=== PATIENT | male | born 1955 | race Caucasian/White ===

== ENCOUNTER 2021-09-13 10:52 | Outpatient (CLI) | payer MEDICARE, OTHER, SELFPAY | END 2021-09-13 10:53 | disposition home or self-care (01) | LOC: ANHAUDIO 10:54 | PROVIDERS: PCP Emergency Medicine; Visit Provider Emergency Medicine | DX: H90.3 Sensorineural hearing loss, bilateral (principal) | CPT/HCPCS: 92557; 92567 ==

== ENCOUNTER → 2022-01-20 16:17 | Outpatient (CLI) | payer MEDICARE, OTHER, SELFPAY ==
--- NOTE | ~2022-01-20 | MR_ITS ---
EXAMINATION: MR lumbar spine wo con DATE: 01/20/2022 16:54 INDICATION: Radiculopathy and low back pain TECHNIQUE: Magnetic resonance imaging (MRI) of the lumbar spine was performed without intravenous con trast. Sequences included sagittal T2-weighted FSE, sagittal T2-weighted FS FSE, sagittal T1-weighted FSE, and axial T2-weighted FSE. COMPARISON: None FINDINGS: 1-2 mm retrolisthesis L1 on L2 and L2 on L3. 4 mm retrolisthesis L3 on L4 and L4 on L5. Mild anterior wedging at T12 and L1. There are a few small Schmorl's nodes in the upper lumbar and lower thoracic spine. Acute to subacute L5 compression fracture with marrow edema underlying minimally depressed rig ht side of the superior endplate of L5. T1 and T2 hyperintense hemangioma at T12. Moderate disc heigh t loss at T11-T12. Mild disc height loss at T12-L1, L4-5 and L5-S1. The conus medullaris terminates a t L1-L2. There is normal signal in the caudal spinal cord. Paravertebral soft tissues are unremarkabl e. The following disc levels are specifically discussed: T11-T12: Disc is mildly bulging. There is mild bilateral facet osteoarthritis. There is mild bilatera l neural foraminal stenosis. There is mild central canal stenosis. T12-L1: The disc does not extend beyond the endplate margin. There is mild bilateral facet joint oste oarthritis. There is no neural foraminal stenosis. There is no central canal stenosis. L1-L2: Disc is mildly bulging. There is mild bilateral facet joint osteoarthritis. There is mild bila teral neural foraminal stenosis. There is mild central canal stenosis. L2-L3: Disc is minimally bulging. There is mild bilateral facet joint osteoarthritis. There is mild b ilateral neural foraminal stenosis. There is minimal central canal stenosis. L3-L4: Disc is bulging. There is mild bilateral facet joint osteoarthritis. There is moderate bilater al neural foraminal stenosis. There is mild central canal stenosis. L4-L5: Disc is bulging with annular fissure. There is hypertrophy of the ligamentum flavum. There is moderate bilateral facet joint osteoarthritis. There is moderate bilateral neural foraminal stenosis. There is severe central canal stenosis. L5-S1: Disc is bulging. There is severe bilateral facet joint osteoarthritis. There is moderate left and mild to moderate right neural foraminal stenosis. There is mild central canal stenosis. IMPRESSION: 1. Moderate lumbar spondylosis most notable for severe central canal stenosis at L4-L5. 2. Marrow edema underlying a minimally depressed superior endplate compression fracture at the right side of L5. Reviewed, dictated and finalized at location B. IMPRESSION: 1. Moderate lumbar spondylosis most notable for severe central canal stenosis a t L4-L5. 2. Marrow edema underlying a minimally depressed superior endplate compression fracture at the right side of L5.
== END ==
PROVIDERS: PCP Emergency Medicine; Visit Provider Emergency Medicine
DX: M47.896 Other spondylosis, lumbar region (principal)
CPT/HCPCS: 72148

== ENCOUNTER 2022-03-15 07:39 | Outpatient (CLI) | payer MEDICARE, OTHER, SELFPAY ==
--- NOTE | 2022-04-10 11:35 | WPDSLEEPSTUD ---
Sleep Study Date of Study: 03/15/22 Ordering Provider: Enzo Lynn MD Interpreting Physician: Trinity Davenport DO Sleep Study Type: Split Polysomnogram Height: 1.8 m Weight: 92.533 kg Body Mass Index: 28.4 Neck Circumference (inches): 16.5 [place]: 11 Reason for Sleep Study Daytime hypersomnia Sleep History The patient is a 66-year-old with hypertension, hyperlipidemia, coronary artery disease, spinal stenosis and history of stroke (12/2012) that had a sleep study ordered by his plumber and tinner for evaluation of sleep apnea. The patient denies awakening from sleep short of breath. He rarely awakens at night with heartburn, belching or cough. He frequently snores but is rarely loudly enough that others complain. He denies having trouble sleeping when he has a cold. He denies waking up gasping for air throughout the night. Denies having breathing problems at night observed by himself or others. He denies sweating excessively at night. He denies having heart palpitations or irregular heartbeats during the night. He frequently falls asleep during the day but rarely falls asleep while driving. He denies sleep paralysis, cataplexy and hypnagogic / hypnopompic hallucinations. He denies feeling afraid of going to sleep. He denies having nightmares. He frequently remembers his dreams. He frequently has thoughts racing through his mind. He denies feeling sad, depressed or anxious. He rarely has muscular tension. He occasionally notices parts of his body jerk. He denies kicking during the night. He denies having crawling and aching feelings in his legs but occasionally has leg pain during the night. He rarely grinds his teeth during sleep but never awakens with morning jaw pain. He is constantly bothered by pain during the day but rarely awakened by pain during the night. He frequently wakes up feeling stiff in the morning. He occasionally wakes up with sore achy muscles. He constantly wakes up with pain in the neck, spine and other joints. He goes to bed between 9-10 p.m. on weekdays and between 9-11 p.m. on the weekends. He takes him 60 90 minutes to fall asleep. He wakes up 2-4 times throughout the night to urinate. It takes him 1 hour to fall back asleep. He wakes up between 7-8 a.m. on both weekdays and weekends. He typically gets 6-7 hours of total sleep throughout the night. He stays in bed for 1 hour after waking up in the morning. He currently lives with his . He will drink caffeinated tea within 2 hours of bedtime. He denies engaging in physical exercise before bedtime. He will watch television before falling asleep. He denies taking naps in the afternoon or evening. He drinks 2 caffeinated beverages per day. He denies tobacco, alcohol and recreational drug use. FORMERLY [facility] Past Medical History Medical History Back pain at L4-L5 level Body mass index [BMI] 26.0-26.9, adult (05/18/17) Body mass index [BMI] 27.0-27.9, adult (07/26/17) Body mass index [BMI] 28.0-28.9, adult (08/03/16) Body mass index [BMI] 45.0-49.9, adult (03/07/18) Carpal tunnel syndrome, bilateral Cerebrovascular accident (CVA) Cervical radiculopathy Chronic right-sided thoracic back pain Cough DISH (diffuse idiopathic skeletal hyperostosis) Encounter for screening colonoscopy Fatigue HLD (hyperlipidemia) HTN (hypertension), benign Hypertension Injury of digital nerve of right thumb, initial encounter 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
[2022-04-11 07:57] VITALS: BMI 28.4
--- NOTE | 2022-05-25 15:05 | SLEEP ---
PT HAD F/U APPOINTMENT TO RECEIVE RESULTS. 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
== END 2022-03-16 06:48 | disposition home or self-care (01) ==
PROVIDERS: PCP Emergency Medicine; Visit Provider Internal Medicine Cardiovascular Disease
DX: G47.10 Hypersomnia, unspecified (principal); G47.33 Obstructive sleep apnea (adult) (pediatric); G47.61 Periodic limb movement disorder
CPT/HCPCS: 95811

== ENCOUNTER 2024-06-03 08:38 | Outpatient (CLI) | payer MEDICARE, OTHER, SELFPAY ==
--- NOTE | 2024-06-03 09:30 | NEURO_ITS ---
Impression: # Complains of numbness of hands. # Not enough evidence to make diagnosis of Carpal Tunnel Syndrome or ulnar neuropathy. # Normal needle/EMG exam. # Clinical correlation recommended; Higher involvement needs to be ruled out. Nerve Conduction Studies Anti Sensory Summary Table Stim Site NR Peak (ms) P-T Amp (?V) Site1 Site2 Delta-P (ms) Dist (cm) Kilo (m/s) Left Median Anti Sensory (2-3nd Digit) Wrist 2.6 47.8 Wrist 2-3nd Digit 2.6 14.0 54 Wrist 2.6 34.9 Wrist 2-3nd Digit 2.6 14.0 54 Right Median Anti Sensory (2-3nd Digit) Wrist 3.2 53.5 Wrist 2-3nd Digit 3.2 14.0 44 Wrist 2.7 34.4 Wrist 2-3nd Digit 3.2 14.0 44 Left Radial Anti Sensory (Base 1st Digit) Wrist 2.2 30.6 Wrist Base 1st Digit 2.2 0.0 Right Radial Anti Sensory (Base 1st Digit) Wrist 2.0 43.8 Wrist Base 1st Digit 2.0 0.0 Left Ulnar Anti Sensory (5th Digit) Wrist 2.3 13.9 Wrist 5th Digit 2.3 14.0 61 Right Ulnar Anti Sensory (5th Digit) Wrist 2.3 27.6 Wrist 5th Digit 2.3 14.0 61 Motor Summary Table Stim Site NR Onset (ms) O-P Amp (mV) Site1 Site2 Delta-0 (ms) Dist (cm) Kilo (m/s) Left Median Motor (Abd Poll Brev) Wrist 3.8 2.2 Elbow Wrist 5.9 32.0 54 Elbow 9.7 1.9 Right Median Motor (Abd Poll Brev) Wrist 3.9 1.3 Elbow Wrist 5.2 30.0 58 Elbow 9.1 1.2 Left Ulnar Motor (Abd Dig Minimi) Wrist 2.5 8.6 A Elbow Wrist 5.7 32.0 56 A Elbow 8.2 6.0 Right Ulnar Motor (Abd Dig Minimi) Wrist 2.3 9.0 A Elbow Wrist 5.4 30.0 56 A Elbow 7.7 6.9 F Wave Studies NR F-Lat (ms) L-R F-Lat (ms) Left Median (Mrkrs) (Abd Poll Brev) 29.11 1.13 Right Median (Mrkrs) (Abd Poll Brev) 30.23 1.13 Left Ulnar (Mrkrs) (Abd Dig Min) 29.02 0.90 Right Ulnar (Mrkrs) (Abd Dig Min) 28.13 0.90 EMG Side Muscle Nerve Root Ins Act Fibs Amp Dur Recrt Comment Right 1stDorInt Ulnar C8-T1 Nml Nml Nml Nml Nml Right Ext Indicis Radial (Post Int) C7-8 Nml Nml Nml Nml Nml Right Ext Digitorum Radial (Post Int) C7-8 Nml Nml Nml Nml Nml Right BrachioRad Radial C5-6 Nml Nml Nml Nml Nml Right PronatorTeres Median C6-7 Nml Nml Nml Nml Nml Right Abd Poll Brev Median C8-T1 Nml Nml Nml Nml Nml Right ABD Dig Min Ulnar C8-T1 Nml Nml Nml Nml Nml Left 1stDorInt Ulnar C8-T1 Nml Nml Nml Nml Nml Left Ext Indicis Radial (Post Int) C7-8 Nml Nml Nml Nml Nml Left Ext Digitorum Radial (Post Int) C7-8 Nml Nml Nml Nml Nml Left BrachioRad Radial C5-6 Nml Nml Nml Nml Nml Left PronatorTeres Median C6-7 Nml Nml Nml Nml Nml Left Abd Poll Brev Median C8-T1 Nml Nml Nml Nml Nml Left ABD Dig Min Ulnar C8-T1 Nml Nml Nml Nml Nml MTDD
== END 2024-06-03 08:39 | disposition home or self-care (01) ==
PROVIDERS: PCP Emergency Medicine; Visit Provider Emergency Medicine
DX: R20.2 Paresthesia of skin (principal)
CPT/HCPCS: 95886; 95911

== ENCOUNTER 2024-10-02 17:22 | Emergency (ER) | payer MEDICARE, OTHER, SELFPAY ==
--- NOTE | ~2024-10-02 | CT_ITS ---
CT brain wo con Ordering provider: Baudilio Riggins MD History: 69 years Male with . trauma . Comparison: January 04, 2013. Technique: CT of the head without contrast. Radiation reduction technique utilized.The dose-length pr oduct was 681 mGy-cm. 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 No midline shift, mass effect or hemorrhage. The brain parenchyma and CSF spaces are otherwise normal. VISUALIZED PARANASAL SINUSES: Left ethmoid sinus disease. MASTOIDS: Well aerated. BONES: The bones appear intact. SOFT TISSUES: Visualized nasopharynx is normal. Frontal scalp hematoma otherwise, Superficial soft t issues are normal. IMPRESSION: No acute intracranial findings. Reviewed, dictated and finalized at location A. ABILITY MANAGER
[2024-10-02 17:24] VITALS: BP 184/89; PULSE 61; RESP 18; TEMP 36.6; O2SAT 97
--- OUTSIDE RECORDS SUMMARY | 2024-10-02 17:25 | XMS_ITS | Clinical Summary ---
Author Organization [facility] Address [facility] [place] [address] Care Team Providers Care Control Manager Name Role Phone Pedrito Maddox MD Primary Care Provider + [phone] Allergies Active Allergy Reactions Criticality Noted Date Comments Penicillins Itching,Anaphylaxis High 08/19/2018 Per mother as child Medications amlodipine 10 MG tablet TK 1 T PO QD 0 07/21/2018 Active pravastatin 20 MG tablet TK 1 T PO QD 1 07/21/2018 Active quinapril 40 MG tablet TK 1 T PO QD 1 07/21/2018 Active clopidogrel 75 MG tablet Take 75 mg by mouth daily. Active Active Problems Problem Noted Date Diagnosed Date Numbness and tingling of right arm 05/02/2022 Burning sensation of lower extremity 02/01/2022 Spinal stenosis of lumbar re gion with neurogenic claudication 02/01/2022 Abnormal MRI, lumbar spine 02/01/2022 Other intervertebral disc degeneration, lumbar r egion 02/01/2022 Synovial cyst of lumbar facet joint 02/01/2022 Foraminal stenosis of lumbar region 02/01/2022 Postsurgical arthrodesis status 10/03/2018 Postoperative state 10/03/2018 Cervical stenosis of spinal canal 09/18/2018 S/P cervical spinal fusion 09/18/2018 Upper extremity weakness 08/29/2018 Stenosis of cervical spine w ith myelopathy ([facility]) 08/19/2018 Facet arthropathy, cervical 08/19/2018 Other cervical disc degenera tion, unspecified cervical region 08/19/2018 Foraminal stenosis of cervical region 08/19/2018 Immunizations Name Administration Dates Next Due MODERNA COVID-19 (12+) MRNA, LNP-S, PF, 100 MCG/ 0.5 ML DOSE 11/16/2020,10/19/2020 Family History Medical History Relation Comments Stroke Mother Heart Disease Sister 1 pacemaker Stroke Sister 1 age 58 Stroke Sister 2 age 58 Relation Status Comments Mother Sister 1 Alive Sister 2 Social History Tobacco Use Types Packs/Day Years Used Date Smoking Tobacco: Never Smokeless Tobacco: Never Tobacco Cessation:Counseling Given: Yes Alcohol Use Standard Drinks/Week Comments No 0 (1 standard drink = 0.6 oz pur e alcohol) AUDIT-C Answer Date Recorded Frequency of Alcohol Consumption Never 09/12/2018 Average Number of Drinks Not on file 019 Frequency of Binge Drinking Not on file 08/30 Sex and Gender Information Value Date Recorded Sex Assigned at Not on file Legal Sex Male 7:07 PM CDT Gender Identity Not on file Sexual Orientation Not on file Last Filed Vital Signs Vital Sign Reading Time Taken Comments Blood Pressure 166/95 07/06/2022 1:12 PM CHILD CARE CENTRE DIRECTOR ran out of bp medication Pulse 54 07/06/2022 1:12 PM CHILD CARE CENTRE DIRECTOR Temperature 36.8 C (98.3 F) 07/06/2022 1:12 PM CHILD CARE CENTRE DIRECTOR Respiratory Rate 18 05/02/2022 1:03 PM CDT Oxygen Saturation 98% 07/06/2022 1:1 2 PM CHILD CARE CENTRE DIRECTOR Inhaled Oxygen Concentration - - Weight 94.3 kg (208 lb) 07/06/2022 1:12 PM CHILD CARE CENTRE DIRECTOR Height 180.3 cm (5' 11 ) 07/06/2022 1:1 2 PM CHILD CARE CENTRE DIRECTOR Body Mass Index 29.01 07/06/2022 1:12 PM CHILD CARE CENTRE DIRECTOR Plan of Treatment Health Maintenance Due Date Last Done Comments Colorectal Cancer Screening Colonoscopy (10 Years) 1954 Hepatitis C 1972 DTaP, Tdap and Td Vaccines ( 1 - Tdap) 1973 Zoster Vaccines (1 of 2) 2004 Annual Medicare Wellness Visit 2019 Pneumococcal Vaccine: 65+ Years (1 of 1 - PCV) 2019 COVID-19 Vaccine (3 - 2023-2 5 season) 2024 11/16/2020, 10/19/2020 Influenza Adult (#1) 2024 RSV Immunization or 60+ Years (1 - 1-dose 75+ series) 2029 Meningococcal B Vaccine Aged Out No l onger eligible based on patient's age to complete this topic Meningococcal Vaccine Aged Out No nano dwayne eligible based on patient's age to complete this topic RSV Immunizations Under 20 Months Aged Out No longer eligible b ased on patient's age to complete this topic Medical Devices Implanted Type Area Market Analysis Director Device Identifier Shelf Expiration Date Model / Serial / Lot Infuse Bone Graft Implanted:Qty : 1 on 09/18/2018 by Raf Gaitan MD at [facility] N/A: Spine Cervical [employer] [id number] 11/26/2020 [id number] / / [id number] Infuse Bone Graft Implanted:Qty : 1 on 09/18/2018 by Raf Gaitan MD at [facility] N/A: Spine Cervical [employer] [id number] 05/29/2019 [id number] / / [id number] Description:C6-7 Kipton Daksha-Metalene Implanted:Qty : 1 on 09/18/2018 by Raf Gaitan MD at [facility] N/A: Spine Cervical [employer] [id number] 03/06/2022 39-2806-[id number] / / [id number] Description:C6-7 Kipton Daksha-Metalene Implanted:Qty : 1 on 09/18/2018 by Raf Gaitan MD at [facility] N/A: Spine Cervical [employer] [id number] 03/06/2022 39-2806-[id number] / / [id number] Description:C5-6 Kipton Daksha-Metalene Implanted:Qty : 1 on 09/18/2018 by Raf Gaitan MD at [facility] N/A: Spine Cervical [employer]INE [id number] 03/06/2022 39-2807-S / / [id number] Description:C4-5 Infuse Bone Graft Implanted:Qty : 1 on 09/18/2018 by Raf Gaitan MD at [facility] N/A: Spine Cervical [employer] [id number] 01/26/2019 [id number] / / [id number] [employer]ator 3 Level Plate Implanted:Qty : 1 on 09/18/2018 by Raf Gaitan MD at [facility] N/A: Spine Cervical [employer] LUIS JENIFFER [id number] / / Screw Variable Self Drilling Luis 16mm - [id number] Implanted:Qty : 8 on 09/18/2018 by Raf Gaitan MD at [facility] N/A: Spine Cervical [employer]IS [employer]FFER [id number] / / Explanted Type Area Market Analysis Director Device Identifier Shelf Expiration Date Model / Serial / Lot Distration Pin 12mm - [id number] Explanted:Qty: 4 on 09/18/[address] [facility] N/A: Spine Cervical [employer] DP-[id number] / / Insurance MEDICARE [facility] Advance Directives Documents on File Type Date Recorded Patient Director Cardiovascular Expl anation Advance Directives and Living Will 09/19/2018 9:51 AM 09/18/18 [facility] * Full Code (Latest Code Status on File) Date Activated Date Inactivated Comments 09/18/2018 3:11 PM 09/20/2018 7:06 PM Care Teams Control Manager Relationship Specialty Start Date End Date Pedrito Maddox MD [id number] [place] [id number] PCP - General INTERNAL MEDICINE 08/29/18
--- OUTSIDE RECORDS SUMMARY | 2024-10-02 17:25 | XMS_ITS | Patient Health Summary ---
Author Organization [facility] [employer] Address [address] [place] [address] Care Team Providers Care Turbinated Bone Grinder Name Role Phone Herlinda Maddox MD Primary Care Provider [phone] Note from [facility],non-owned Affiliates and Associated Physician Practices is amultiple site organization consisting of ambulatory clinics and hospital sitesin [place], [place], [place] and [place]. This disclosure is being madepursuant to the Care Everywhere program and may not contain all information available regarding this patient. Last updated 18.[facility] [employer] Allergies * Penicillins(Anaphylaxis) -High Criticality Medications * Be aware that medications may not be up to date on this document. Alwaysverify current medications with the patient. * AMLODIPINE BESYLATE PO * PRAVASTATIN SODIUM PO * CLOPIDOGREL BISULFATE PO * HYDROCHLOROTHIAZIDE PO * QUINAPRIL HCL PO * oxyCODONE-acetaminophen (PERCOCET) 5-325 MG tablet(Started 09/27/2018) Take 2 tablets by mouth every 6 hours as needed Active Problems Problem Noted Date Diagnosed Date CSF leak 09/20/2018 Social History Tobacco Use Types Packs/Day Years Used Date Smoking Tobacco: Never Smokeless Tobacco: Never Sex and Gender Information Value Date Recorded Sex Assigned at Not on file Gender Identity Not on file Sexual Orientation Not on file Last Filed Vital Signs Vital Sign Reading Time Taken Comments Blood Pressure 136/84 09/27/2018 3:36 PM [facility] Pulse 64 09/27/2018 3:36 PM [facility] Temperature 37 C (98.6 F) 09/27/2018 3:36 PM [facility] Respiratory Rate 16 09/27/2018 3:36 PM [facility] Oxygen Saturation 95% 09/27/2018 3:36 PM [facility] Inhaled Oxygen Concentration - - Weight 91.6 kg (202 lb) 09/20/2018 6:29 PM [facility] Height 180.3 cm (5' 11 ) 09/20/2018 6:29 PM [facility] Body Mass Index 28.17 09/20/2018 6:29 PM [facility] Procedures * COMPREHENSIVE METABOLIC PANEL(Performed 09/27/2018) * CBC W/O DIFFERENTIAL(Performed 09/27/2018) * XR CHEST 1VW(Performed 09/24/2018) Performed for CSF leak * BASIC METABOLIC PANEL (CALCIUM TOTAL)(Performed 09/23/2018) * PHOSPHORUS BLOOD(Performed 09/23/2018) * MAGNESIUM BLOOD(Performed 09/23/2018) * CBC W AUTO DIFFERENTIAL(Performed 09/23/2018) * BASIC METABOLIC PANEL (CALCIUM TOTAL)(Performed 09/22/2018) * PHOSPHORUS BLOOD(Performed 09/22/2018) * MAGNESIUM BLOOD(Performed 09/22/2018) * CBC W AUTO DIFFERENTIAL(Performed 09/22/2018) * CT NECK SOFT TISSUE W CONT(Performed 09/21/2018) Performed for CSF leak * BASIC METABOLIC PANEL (CALCIUM TOTAL)(Performed 09/21/2018) * PHOSPHORUS BLOOD(Performed 09/21/2018) * MAGNESIUM BLOOD(Performed 09/21/2018) * CBC W AUTO DIFFERENTIAL(Performed 09/21/2018) * STREP A SCREEN - POINT OF CARE (AMB) STL(Performed 09/28/2017) Performed for Acute nasopharyngitis * EVENT MONITOR(Performed 02/21/2013) * CT CHEST ABDOMEN PELVIS W CONT(Performed 01/07/2013) * BASIC METABOLIC PANEL (CALCIUM TOTAL)(Performed 01/07/2013) * CBC W AUTO DIFFERENTIAL(Performed 01/07/2013) * MRI BRAIN WWO CONTRAST(Performed 01/06/2013) * BASIC METABOLIC PANEL (CALCIUM TOTAL)(Performed 01/06/2013) * CBC W AUTO DIFFERENTIAL(Performed 01/06/2013) * ECHO FLORENTIN TRANSESOPHAGEAL(Performed 01/06/2013) * TROPONIN I(Performed 01/05/2013) * CK + CKMB PANEL(Performed 01/05/2013) * HEMOGLOBIN A1C(Performed 01/05/2013) * LIPID PROFILE(Performed 01/05/2013) * BASIC METABOLIC PANEL (CALCIUM TOTAL)(Performed 01/05/2013) * CBC W AUTO DIFFERENTIAL(Performed 01/05/2013) * TROPONIN I(Performed 01/05/2013) * CK + CKMB PANEL(Performed 01/05/2013) * ALCOHOL ETHYL BLOOD(Performed 01/04/2013) * CT ANGIO BRAIN AND NECK(Performed 01/04/2013) * URINALYSIS W/MICROSCOPIC NO CULTURE(Performed 01/04/2013) * DRUG ABUSE PANEL 10-20+ETHANOL URINE NO CONFIRM(Performed 01/04/2013) * ECHO COMPLETE(Performed 01/04/2013) Results * (ABNORMAL) CBC W/O DIFFERENTIAL (09/27/2018 7:22 AM [facility]) WBC 13.8(H) 3.5 - 10.5 10 3/uL 09/27/2018 7:29 AM [facility] RBC 5.95(H) 4.30 - 5.70 10 6/uL 09/27/2018 7:29 AM [facility] Hemoglobin 17.2 13.5 - 17.5 g/dL 09/27/2018 7:29 AM [facility] Hematocrit 51.1(H) 39.0 - 50.0 % 09/27/2018 7:29 AM [facility] MCV 85.9 81.0 - 97.0 fL 09/27/2018 7:29 AM [facility] MCH 28.9 28.0 - 34.0 pg 09/27/2018 7:29 AM [facility] MCHC 33.7 32.0 - 36.0 g/dL 09/27/2018 7:29 AM [facility] Platelet Count 241 150 - 400 10 3/uL 09/27/2018 7:29 AM [facility] RDW-SD 41.3 36.0 - 50.0 fL 09/27/2018 7:29 AM [facility] RDW-CV 13.4 11.2 - 14.8 % 09/27/2018 7:29 AM [facility] MPV 9.1(L) 9.3 - 12.8 fL 09/27/2018 7:29 AM [facility] nRBC Absolute 0.00 0 10 3/uL 09/27/2018 7:29 AM [facility] nRBC Auto 0.0 0 /100 WBC 09/27/2018 7:29 AM [facility] Blood BLOOD SPECIMEN / Unknown Lab Venipuncture / Unknown 09/27/2018 7:22 AM [facility] 09/27/2018 7:26 AM [facility] Casey Ewing MD LAB - HEMATOLOGY ORDERABLES [facility] [address] [place] [address] * (ABNORMAL) COMPREHENSIVE METABOLIC PANEL (09/27/2018 7:22 AM [facility]) BUN 22 7 - 26 mg/dL 09/27/2018 7:46 AM [facility] Creatinine 1.2 0.6 - 1.2 mg/dL 09/27/2018 7:46 AM [facility] Sodium 139 136 - 145 mmol/L 09/27/2018 7:46 AM [facility] Potassium 4.1 3.5 - 4.5 mmol/L 09/27/2018 7:46 AM [facility] Chloride 104 98 - 107 mmol/L 09/27/2018 7:46 AM [facility] CO2 26 22 - 29 mmol/L 09/27/2018 7:46 AM [facility] Glucose 88 70 - 115 mg/dL 09/27/2018 7:46 AM [facility] Calcium 9.5 8.4 - 10.2 mg/dL 09/27/2018 7:46 AM [facility] Protein Total 6.2 6.0 - 8.3 g/dL 09/27/2018 7:46 AM [facility] Albumin 3.0(L) 3.4 - 5.0 g/dL 09/27/2018 7:46 AM [facility] Bilirubin Total 1.2 0.2 - 1.2 mg/dL 09/27/2018 7:46 AM [facility] Alkaline Phosphatase 73 40 - 150 Units/L 09/27/2018 7:46 AM [facility] ALT 49 0 - 55 Units/L 09/27/2018 7:46 AM [facility] AST 19 5 - 34 Units/L 09/27/2018 7:46 AM [facility] Anion Gap 13 8 - 18 09/27/2018 7:46 AM [facility] BUN/Creatinine Ratio 18 7 - 23 09/27/2018 7:46 AM [facility] Osmolality Calculated 291 270 - 300 mOsm/kg 09/27/2018 7:46 AM [facility] Albumin/Globulin Ratio 0.9(L) 1.1 - 2.3 09/27/2018 7:46 AM [facility] eGFR >60 >60 mL/min/1.7 3 m2 09/27/2018 7:46 AM [facility] Blood BLOOD SPECIMEN / Unknown Lab Venipuncture / Unknown 09/27/2018 7:22 AM [facility] 09/27/2018 7:26 AM [facility] Casey Ewing MD LAB - CHEMISTRY ORDERABLES Performing Organization Address City/State/[facility] Co de Phone Number [address] [phone] * XR CHEST 1VW (09/24/2018 7:00 AM [facility]) Anatomical Region Laterality Modality Chest Radiographic Nadja ging 09/24/2018 11:3 9 AM [facility] Impressions 09/24/2018 11:56 AM [facility] IMPRESSION: 1.No acute pulmonary process is seen. Report dictated by Maged Tena M.D. This report was approved by Maged Tena on 09/24/2018 11:41 AM . I, Dr. LALA RICH M.D. have personally reviewed and interpreted this examination/study. This report was electronically signed by LALA RICH M.D. on 09/24/2018 11:56 AM . Narrative 09/24/2018 11:56 AM [facility] EXAMINATION: XR CHEST 1VW HISTORY: r/o atelectasis vs PNA COMPARISON: None. FINDINGS: The lungs are hypoinflated. No focal consolidation, pleural effusion, or pneumothorax is seen. The cardiomediastinal silhouette is normal. The visible bony thorax shows no acute fractures. Procedure Note Lala Rich MD - 09/24/2018 EXAMINATION: XR CHEST 1VW HISTORY: r/o atelectasis vs PNA COMPARISON: None. FINDINGS: The lungs are hypoinflated. No focal consolidation, pleural effusion, or pneumothorax is seen. The cardiomediastinal silhouette is normal. The visible bony thorax shows no acute fractures. IMPRESSION: 1.No acute pulmonary process is seen. Report dictated by Maged Tena M.D. This report was approved by Maged Tena on 09/24/2018 11:41 AM . I, Dr. LALA RICH M.D. have personally reviewed and interpreted this examination/study. This report was electronically signed by LALA RICH M.D. on 09/24/2018 11:56 AM . Ashish Bell MD DIAGNOSTIC IMAGING O RDERABLES * (ABNORMAL) CBC W AUTO DIFFERENTIAL (09/23/2018 3:12 AM [facility]) Only the most recent of6 resultswithin the time period is included. WBC 16.2(H) 3.5 - 10.5 10 3/uL 09/23/2018 3:29 AM [facility] RBC 5.81(H) 4.30 - 5.70 10 6/uL 09/23/2018 3:29 AM [facility] Hemoglobin 16.6 13.5 - 17.5 g/dL 09/23/2018 3:29 AM [facility] Hematocrit 49.3 39.0 - 50.0 % 09/23/2018 3:29 AM [facility] MCV 84.9 81.0 - 97.0 fL 09/23/2018 3:29 AM [facility] MCH 28.6 28.0 - 34.0 pg 09/23/2018 3:29 AM [facility] MCHC 33.7 32.0 - 36.0 g/dL 09/23/2018 3:29 AM [facility] Platelet Count 209 150 - 400 10 3/uL 09/23/2018 3:29 AM [facility] RDW-SD 40.6 36.0 - 50.0 fL 09/23/2018 3:29 AM [facility] RDW-CV 13.2 11.2 - 14.8 % 09/23/2018 3:29 AM [facility] MPV 9.2(L) 9.3 - 12.8 fL 09/23/2018 3:29 AM [facility] nRBC Absolute 0.00 0 10 3/uL 09/23/2018 3:29 AM [facility] nRBC Auto 0.0 0 /100 WBC 09/23/2018 3:29 AM [facility] Neutrophils % 83.9(H) 35.0 - 70.0 % 09/23/2018 3:29 AM [facility] Lymphocytes % 7.3(L) 19.7 - 55.1 % 09/23/2018 3:29 AM [facility] Monocytes % 6.6 3.0 - 15.0 % 09/23/2018 3:29 AM [facility] Eosinophils % 0.1 0.0 - 6.0 % 09/23/2018 3:29 AM [facility] Basophil % 0.2 0.0 - 1.5 % 09/23/2018 3:29 AM [facility] Neutrophils Absolute 13.6(H) 1.6 - 7.0 10 3/uL 09/23/2018 3:29 AM [facility] Lymphocyte Absolute 1.2 0.8 - 2.9 10 3/uL 09/23/2018 3:29 AM [facility] Monocytes Absolute 1.07(H) 0.14 - 0.66 10 3/uL 09/23/2018 3:29 AM [facility] Eosinophils Absolute 0.01 0.00 - 0.45 10 3/uL 09/23/2018 3:29 AM [facility] Basophils Absolute 0.04 0.00 - 0.06 10 3/uL 09/23/2018 3:29 AM [facility] Immature Granulocytes % 1.9(H) 0.0 - 1.0 % 09/23/2018 3:29 AM [facility] Blood BLOOD SPECIMEN / Unknown Venipuncture / Unknown 09/23/2018 3:12 AM [facility] 09/23/2018 3:25 AM [facility] Vitaly Wang MD LAB - HEMATOLOGY ORD ERABLES [facility] [address] [place] [address] * (ABNORMAL) BASIC METABOLIC PANEL (CALCIUM TOTAL) (09/23/2018 3:12 AM [facility]) Only the most recent of6 resultswithin the time period is included. BUN 24 7 - 26 mg/dL 09/23/2018 4:01 AM [facility] Creatinine 0.8 0.6 - 1.2 mg/dL 09/23/2018 4:01 AM [facility] Sodium 140 136 - 145 mmol/L 09/23/2018 4:01 AM [facility] Potassium 3.9 3.5 - 4.5 mmol/L 09/23/2018 4:01 AM [facility] Chloride 108(H) 98 - 107 mmol/L 09/23/2018 4:01 AM [facility] CO2 20(L) 22 - 29 mmol/L 09/23/2018 4:01 AM [facility] Glucose 106 70 - 115 mg/dL 09/23/2018 4:01 AM [facility] Calcium 8.6 8.4 - 10.2 mg/dL 09/23/2018 4:01 AM [facility] Anion Gap 16 8 - 18 09/23/2018 4:01 AM [facility] BUN/Creatinine Ratio 30(H) 7 - 23 09/23/2018 4:01 AM [facility] Osmolality Calculated 294 270 - 300 mOsm/kg 09/23/2018 4:01 AM [facility] eGFR >60 >60 mL/min/1.7 3 m2 09/23/2018 4:01 AM [facility] Blood BLOOD SPECIMEN / Unknown Venipuncture / Unknown 09/23/2018 3:12 AM [facility] 09/23/2018 3:25 AM [facility] Vitaly Wang MD LAB - CHEMISTRY KIRSTIN CIFUENTES [facility] Organization Address City/State/ZIP Co de Phone Number [address] [phone] * PHOSPHORUS BLOOD (09/23/2018 3:12 AM [facility]) Only the most recent of3 resultswithin the time period is included. Pathologist [facility] Phosphorus 3.3 2.3 - 4.7 mg/dL 09/23/2018 4:01 AM [facility] Blood BLOOD SPECIMEN / Unknown Venipuncture / Unknown 09/23/2018 3:12 AM [facility] 09/23/2018 3:25 AM [facility] Vitaly Wang MD LAB - CHEMISTRY KIRSTIN CIFUENTES Performing Organization Address [facility]/ZIP Co de Phone Number [address] [phone] * MAGNESIUM BLOOD (09/23/2018 3:12 AM [facility]) Only the most recent of3 resultswithin the time period is included. Magnesium 2.5 1.6 - 2.6 mg/dL 09/23/2018 4:01 AM [facility] Blood BLOOD SPECIMEN / Unknown Venipuncture / Unknown 09/23/2018 3:12 AM [facility] 09/23/2018 3:25 AM [facility] Vitaly Wang MD LAB - CHEMISTRY KIRSTIN CIFUENTES Performing Organization Address [facility] Co de Phone Number [address] [phone] * CT NECK SOFT TISSUE W CONT (09/21/2018 9:02 AM [facility]) Anatomical Region Laterality Modality Head Computed Tomogra phy 09/21/2018 10:0 4 AM [facility] Impressions 09/21/2018 2:54 PM [facility] IMPRESSION: Postoperative changes of recent anterior cervical discectomy and instrumented fusion from C4 to C7 with right-sided anterior soft tissue surgical drain in place. No abnormal fluid collection to suggest pseudomeningocele. No abnormal enhancement. Streak artifact from the metallic hardware somewhat limits evaluation on the adjacent soft tissues. I, Dr. TRACI DRUMMOND have personally reviewed and interpreted this examination/study. This report was electronically signed by TRACI DRUMMOND on 09/21/2018 2:54 PM . Narrative 09/21/2018 2:54 PM [facility] EXAMINATION: Computed tomography (CT) of the neck with contrast HISTORY: History of stroke and cervical myelopathy status post C4/5, C5/6 and C6/7 ACDF on 09/18/18 who presents with concerns for CSF leak with increased clear fluid output from the ASMITA drain TECHNIQUE: CT of the neck was performed following the uneventful administration of contrast according to standard protocol. COMPARISON: CT angiogram and neck from 01/04/2013. FINDINGS: The patient is status post recent anterior cervical discectomy and spinal fusion from C4-C7. Anterior fixation plate with bilateral anterior screws are seen . Intervertebral disc spacers are noted. The hardware is intact and in expected alignment without foraminal or spinal canal encroachment. A right sided anterior soft tissue drain is in place terminating in the left para midline location at C7-T1 level in the prevertebral/retropharyngeal space. There is mild prevertebral soft tissue swelling without drainable fluid collection. The thickening is most pronounced at C7-T1 level (series 5 image 145). There is no abnormal enhancement in this region. Please note that the evaluation soft tissues is somewhat limited due to streak artifact from the metallic hardware. The cervical curvature is maintained. The vertebrae are normal in height. Disc is osteophyte complexes are seen at all levels with mild to moderate spinal canal stenosis and at least moderate foraminal stenosis at multiple levels, particularly on the right. No lymphadenopathy is seen. The muscles of the neck appear normal. The cervical internal carotid arteries and internal jugular veins appear normal. The visualized airway appears normal. Other than mild paranasal sinus disease, the visualized orbits and paranasal sinuses appear normal. Mild bilateral dependent atelectasis is noted. The thyroid enhances homogenously. Procedure Note Traci Drummond MD - 09/21/2018 EXAMINATION: Computed tomography (CT) of the neck with contrast HISTORY: History of stroke and cervical myelopathy status post C4/5,C5/6 and C6/7 ACDF on 09/18/18 who presents with concerns for CSF leak with increased clear fluid output from the ASMITA drain TECHNIQUE: CT of the neck was performed following the uneventful administration of contrast according to standard protocol. COMPARISON: CT angiogram and neck from 01/04/2013. FINDINGS: The patient is status post recent anterior cervical discectomy andspinal fusion from C4-C7. Anterior fixation plate with bilateral anteriorscrews are seen . Intervertebral disc spacers are noted. The hardware is intact and in expected alignment without foraminal or spinal canalencroachment. A right sided anterior soft tissue drain is in place terminating in the left para midline location at C7-T1 level in the prevertebral/retropharyngeal space. There is mild prevertebral softtissue swelling without drainable fluid collection. The thickening is most pronounced at C7-T1 level (series 5 image 145). There is no abnormal enhancement in this region. Please note that the evaluation soft tissues is somewhat limited due to streak artifact from the metallic hardware. The cervical curvature is maintained. The vertebrae are normal inheight. Disc is osteophyte complexes are seen at all levels with mild tomoderate spinal canal stenosis and at least moderate foraminal stenosis atmultiple levels, particularly on the right. No lymphadenopathy is seen. The muscles of the neck appear normal. The cervical internal carotid arteries and internal jugular veins appear normal. The visualized airway appears normal. Other than mild paranasal sinus disease, the visualized orbits and paranasal sinuses appearnormal. Mild bilateral dependent atelectasis is noted. The thyroid enhances homogenously. IMPRESSION: Postoperative changes of recent anterior cervical discectomy and instrumented fusion from C4 to C7 with right-sided anterior soft tissue surgical drain in place. No abnormal fluid collection to suggest pseudomeningocele. No abnormal enhancement. Streak artifact from the metallic hardware somewhat limits evaluation on the adjacent softtissues. I, Dr. TRACI DRUMMOND have personally reviewed and interpreted this examination/study. This report was electronically signed by TRACI DRUMMOND on 09/21/2018 2:54PM . Vitaly Wang MD CT ORDERABLES * STREP A SCREEN (09/28/2017) Strep A Rapid POCT Negative Negative Strep A Internal Control Present Lot # [id number] Expiration Date [id number] Throat ENTIRE THROAT (SURFACE REGION OF NECK) / Unknown 09/28/2017 Martínez Ireland CARD READER-AIRCREWMAN LAB - POINT OF CARE ORDERABLES * EVENT MONITOR (02/21/2013 8:35 AM CDT) Narrative [facility] - 02/21/2013 8:35 AM CDT Hector Rivas underwent cardiac monitoring with a 30 day event monitor. Results are as follows: Quality of Tracings: Good. Rhythm: Sinus rhythm, sinus bradycardia. Ectopy: None. Symptoms: None reported. Please feel free to contact me with any questions, thank you. Procedure Note Provider, MD Long - 01/04/2018 Hector Rivas underwent cardiac monitoring with a 30 day event monitor.Results are as follows: Quality of Tracings: Good. Rhythm: Sinus rhythm, sinus bradycardia. Ectopy: None. Symptoms: None reported. Please feel free to contact me with any questions, thank you. Arpan Bean CARDIAC SERVICES ORD ERABLES [facility] * CT CHEST ABDOMEN PELVIS W CONT (01/07/2013 4:53 PM CDT) Anatomical Region Laterality Modality Chest, Abdomen, Pelvis Other Impressions 01/08/2013 11:11 AM CDT IMPRESSION: 1. No CT evidence of malignancy in the chest or abdomen. 2. Prostatic enlargement. Findings were discussed with Dr. Schwab of neurology by Dr. Carroll at 5:27 PM on 01/07/2013. This report was approved by Salazar Packer M.D. on 01/08/2013 9:41 AM . I, Dr. HERLINDA VERDUZCO M.D. have personally reviewed and interpreted this examination/study. This report was electronically signed by HERLINDA VERDUZCO M.D. on 01/08/2013 11:11 AM . Narrative 01/08/2013 11:11 AM CDT EXAMINATION: Computed tomography of the chest, abdomen, and pelvis with contrast HISTORY: Stroke with occlusion of anterior and posterior circulations. Concern for embolic source. Evaluate for malignancy. TECHNIQUE: Computed tomography of the chest, abdomen, and pelvis was performed following the uneventful administration of 100 mL Omnipaque 350 intravenous contrast according to standard protocol. FINDINGS: No prior study is available for comparison. The lungs are free of focal consolidations. No suspicious pulmonary nodules are visible. There is no pleural effusion or pneumothorax. Dependent bibasilar atelectasis is present. There are calcified subcentimeter lymph node in the mediastinum. There is no supraclavicular, axillary, or hilar lymphadenopathy. There is a 4 mm hypodense right lower thyroid lobe nodule. The left-sided aortic arch is normal in course and caliber. The pulmonary arteries are normal in course and caliber. The remaining enhanced vascular structures are normal. The heart size is normal. There is no pericardial effusion. Abdomen and Pelvis: The liver enhances homogenously. No focal intrahepatic lesions are seen. The gallbladder is normal without evidence of gallstones or gallbladder wall thickening. There is no intrahepatic or extrahepatic biliary ductal dilatation. The spleen enhances homogenously. The pancreas and adrenal glands are normal. Other than a small left renal cyst measuring 1.6 cm in diameter, the kidneys enhance symmetrically bilaterally. There is no hydronephrosis or hydroureter. There are scattered colonic diverticula without evidence of diverticulitis. The stomach, small bowel and large bowel are normal in course and caliber without evidence of bowel wall thickening or bowel obstruction. No free intraperitoneal air or fluid is seen. The appendix is not visible, however there is no fat stranding in the right lower quadrant. There is no evidence of retroperitoneal lymphadenopathy. The abdominal aorta is normal in course and caliber. The remaining enhanced abdominal vascular structures are normal. The bladder is distended with fluid. There is an enlarged prostate measuring 5.6 cm transverse dimension with central foci of calcification, and indenting the posterior aspect of the bladder. There is no free fluid in the pelvis. Bone windows demonstrate no suspicious lytic or blastic lesions. Multilevel degenerative changes are seen in the spine. Procedure Note Herlinda Verduzco MD - 10/28/2017 EXAMINATION: Computed tomography of the chest, abdomen, and pelvis withcontrast HISTORY: Stroke with occlusion of anterior and posterior circulations.Concern for embolic source. Evaluate for malignancy. TECHNIQUE: Computed tomography of the chest, abdomen, and pelvis wasperformed following the uneventful administration of 100 mL Omnipaque 350intravenous contrast according to standard protocol. FINDINGS: No prior study is available for comparison. The lungs are free of focal consolidations. No suspicious pulmonarynodules are visible. There is no pleural effusion or pneumothorax. Dependent bibasilaratelectasis is present. There are calcified subcentimeter lymph node in the mediastinum. There isno supraclavicular, axillary, or hilar lymphadenopathy. There is a 4 mmhypodense right lower thyroid lobe nodule. The left-sided aortic arch is normal in course and caliber. The pulmonaryarteries are normal in course and caliber. The remaining enhanced vascularstructures are normal. The heart size is normal. There is no pericardial effusion. Abdomen and Pelvis: The liver enhances homogenously. No focal intrahepatic lesions are seen.The gallbladder is normal without evidence of gallstones or gallbladderwall thickening. There is no intrahepatic or extrahepatic biliary ductaldilatation. The spleen enhances homogenously. The pancreas and adrenal glands are normal. Other than asmall left renal cyst measuring 1.6 cm in diameter, the kidneys enhancesymmetrically bilaterally. There is no hydronephrosis or hydroureter. There are scattered colonic diverticula without evidence ofdiverticulitis. The stomach, small bowel and large bowel are normal incourse and caliber without evidence of bowel wall thickening or bowelobstruction. No free intraperitoneal air or fluid is seen. The appendix is not visible, however there is no fat stranding inthe right lower quadrant. There is no evidence of retroperitoneallymphadenopathy. The abdominal aorta is normal in course and caliber. Theremaining enhanced abdominal vascular structures are normal. The bladder is distended with fluid. There is an enlarged prostatemeasuring 5.6 cm transverse dimension with central foci of calcification,and indenting the posterior aspect of the bladder. There is no free fluidin the pelvis. Bone windows demonstrate no suspicious lytic or blastic lesions.Multilevel degenerative changes are seen in the spine. IMPRESSION IMPRESSION: 1. No CT evidence of malignancy in the chest or abdomen. 2. Prostatic enlargement. Findings were discussed with Dr. Schwab of neurology by Dr. Carroll at 5:27PM on 01/07/2013. This report was approved by Salazar Packer M.D. on 01/08/2013 9:41 AM. I, Dr. HERLINDA VERDUZCO M.D. have personally reviewed and interpretedthis examination/study. This report was electronically signed by HERLINDA VERDUZCO M.D. on01/08/2013 11:11 AM . Shailesh Talamantes MD CT ORDERABLES * MRI BRAIN WWO CONTRAST (01/06/2013 12:53 PM CDT) Anatomical Region Laterality Modality Head Other Impressions 01/06/2013 1:09 PM CDT IMPRESSION: 1. Findings consistent with acute to subacute infarction in the right middle cerebral artery territory as well as an acute to subacute infarction in the lateral thalamus which usually is supplied by lenticulostriate arteries from the posterior circulation. No evidence of hemorrhagic conversion. 2. No mass-like enhancement to suggest malignancy. Right parietal developmental venous anomaly. This report was electronically signed by BRET TUCKER M.D. on 01/06/2013 1:09 PM . Narrative 01/06/2013 1:09 PM CDT EXAMINATION: Magnetic resonance imaging (MRI) of the brain without and with contrast HISTORY: Dysarthria, ptosis, right middle cerebral artery territory infarction. Evaluate for malignancy. TECHNIQUE: MRI of the brain was performed prior to and following the uneventful administration of MultiHance 17 mL intravenous gadolinium contrast according to standard protocol. FINDINGS: No prior study is available for comparison. There is an area of diffusion restriction involving the right frontal lobe cortex and subcortical white matter including the right centrum semiovale as well as the right subinsular region and lateral aspect of the right thalamus with associated T2/FLAIR hyperintensity consistent with acute to subacute infarction. There is a minimal amount of leptomeningeal enhancement in portions of the involved right frontal lobe consistent with recent infarction. No MR evidence of hemorrhagic conversion. There is a focus of linear enhancement extending from the region of the trigone of the right lateral ventricle to the right parietal cortex most consistent with a developmental venous anomaly. No mass-like enhancement is identified. A few scattered T2/FLAIR periventricular hyperintensities are nonspecific but can be seen in the setting of small vessel ischemic disease. Focus of T2 hyperintensity and lack of enhancement in the main likely small old lacunar infarction. Ventricles are of normal size, shape, and morphology. The corpus callosum and sella appear normal. The posterior fossa, brainstem, and craniocervical junction appear normal. The visualized portions of the orbits, mastoids and paranasal sinuses appear normal. Normal flow voids are demonstrated in the carotid arteries and basilar artery. The calvarium and visualized cervical spine appear normal. Procedure Note Bret Tucker MD - 10/28/2017 EXAMINATION: Magnetic resonance imaging (MRI) of the brain without andwith contrast HISTORY: Dysarthria, ptosis, right middle cerebral artery territoryinfarction. Evaluate for malignancy. TECHNIQUE: MRI of the brain was performed prior to and following theuneventful administration of MultiHance 17 mL intravenous gadoliniumcontrast according to standard protocol. FINDINGS: No prior study is available for comparison. There is an area of diffusion restriction involving the right frontal lobecortex and subcortical white matter including the right centrum semiovaleas well as the right subinsular region and lateral aspect of the rightthalamus with associated T2/FLAIR hyperintensity consistent with acute to subacute infarction. There is aminimal amount of leptomeningeal enhancement in portions of the involvedright frontal lobe consistent with recent infarction. No MR evidence ofhemorrhagic conversion. There is a focus of linear enhancement extending from the region of the trigone ofthe right lateral ventricle to the right parietal cortex most consistentwith a developmental venous anomaly. No mass-like enhancement isidentified. A few scattered T2/FLAIR periventricular hyperintensities are nonspecific but can be seen in thesetting of small vessel ischemic disease. Focus of T2 hyperintensity andlack of enhancement in the main likely small old lacunar infarction. Ventricles are of normal size, shape, and morphology. The corpus callosumand sella appear normal. The posterior fossa, brainstem, andcraniocervical junction appear normal. The visualized portions of the orbits, mastoids and paranasal sinusesappear normal. Normal flow voids are demonstrated in the carotid arteriesand basilar artery. The calvarium and visualized cervical spine appearnormal. IMPRESSION IMPRESSION: 1. Findings consistent with acute to subacute infarction in the rightmiddle cerebral artery territory as well as an acute to subacuteinfarction in the lateral thalamus which usually is supplied bylenticulostriate arteries from the posterior circulation. No evidence of hemorrhagic conversion. 2. No mass-like enhancement to suggest malignancy. Right parietaldevelopmental venous anomaly. This report was electronically signed by BRET TUCKER M.D. on 01/06/20131:09 PM . Shailesh Talamantes MD MR ORDERABLES * ECHO FLORENTIN TRANSESOPHAGEAL (01/06/2013 12:00 AM CDT) Anatomical Region Laterality Modality Other 01/06/2013 Shailesh Talamantes MD ECHOCARDIOGRAPHY RAD IANT * TROPONIN I (01/05/2013 8:00 AM CDT) Only the most recent of2 resultswithin the time period is included. Troponin I < 0.010 <0.032 ng/mL [facility] Comment: NOTE Any condition resulting in myocardial cell damage can potentially increase cardiac troponin-I levels. Published studies have documented that these conditions include, but are not limited to, angina, unstable angina, congestive heart failure, myocarditis, cardiac surgery, or invasive testing and non-cardiac related causes such as pulmonary embolism, renal failure, and sepsis. 6-8 hours are required for cardiac troponin I to increase after onset of chest pain. Troponin values generally remain elevated for 5-10 days. 01/05/2013 8:00 AM CDT 01/05/2013 9:23 AM CDT Shailesh Talamantes MD LAB - CHEMISTRY KIRSTIN CIFU[facility] Organization Address City/State/ZIP Co de Phone Number [address] [phone] * CK + CKMB PANEL (01/05/2013 8:00 AM CDT) Only the most recent of2 resultswithin the time period is included. Pathologist [facility] CK Total 53 30 - 200 Units/L [facility] CK-MB 1.6 0.0 - 6.6 ng/mL [facility] Comment: CKMB Reference Range 6.6 ng/mL or greater = Positive For indeterminate results, additional specimen(s) for CKMB, drawn at least one hour apart, may aid diagnosis. Positive CKMB results should be clinically interpreted in combination with total CK serum level. In patients without cardiac muscle damage, CKMB (ng/mL) is generally <2.5% of total CK enzyme activity (Units/L). Virtually all patients with acute myocardial infarction have CKMB values 6.6 ng/mL or greater for samples drawn at least 8-12 hours after the onset of chest pain. CKMB values generally remain elevated for 2-3 days. 01/05/2013 8:00 AM CDT 01/05/2013 9:23 AM CDT Shailesh Talamantes MD LAB - CHEMISTRY [facility] [address] [phone] * HEMOGLOBIN A1C (01/05/2013 1:15 AM CDT) Hemoglobin A1c 5.3 4.4 - 6.3 % [facility] Estimated Average Glucose 105 mg/dL [facility] Blood specimen (specimen) 01/05/2013 1:15 AM CDT 01/05/2013 2:31 AM CDT Shailesh Talamantes MD LAB - CHEMISTRY [facility]IRSTIN CIFU[facility] Performing Organization Address [facility] Co de Phone Number [address] [phone] * (ABNORMAL) LIPID PROFILE (01/05/2013 1:15 AM CDT) Cholesterol Total 178 <200 mg/dL [facility] HDL 29(L) > OR = 40 mg/dL [facility] Comment: ATP III classification of HDL cholesterol: <40 mg/dL Low; considered a major risk factor >60 mg/dL High; considered a negative risk factor Triglycerides 213(H) <150 mg/dL [facility] Comment: ATP III classification of Triglycerides: < 150 mg/dL Normal triglycerides 150-199 mg/dL Borderline-high triglycerides 200-400 mg/dL High triglycerides > 500 mg/dL Very high triglycerides LDL Calculated 106(H) 0 - 100 mg/dL [facility] Comment: ATP III classification of LDL cholesterol: <100 mg/dL Optimal 100-129 Near optimal/above optimal 130-159 Borderline high 160-189 High >190 Very high Venous blood specimen (specimen) 01/05/2013 1:15 AM CDT 01/05/2013 2:31 AM CDT Shailesh Talamantes MD LAB - CHEMISTRY [facility]IRSTIN C[facility] [address] [phone] * ALCOHOL ETHYL BLOOD (01/04/2013 9:20 PM CDT) Ethanol NONE DETECTED NONE DETECTED mg/dL [facility] Comment: ETHANOL LEVELS LESS THAN 10 MG/DL ARE RESULTED NONE DETECTED Venous blood specimen (specimen) 01/04/2013 9:20 PM CDT 01/04/2013 9:33 PM CDT Shailesh Talamantes MD LAB - CHEMISTRY [place] [address], [facility] [phone] * CT ANGIO BRAIN AND NECK (01/04/2013 9:07 PM CDT) Anatomical Region Laterality Modality Head Other Impressions 01/05/2013 8:53 AM CDT IMPRESSION: 1. Evolving right middle cerebral artery territory infarction without hemorrhagic conversion. In a right M2 branch passing anteriorly immediately distal to the right middle cerebral artery bifurcation there is a relative paucity of contrast opacification extending peripherally to the region of infarction when compared with a similar region in the left middle cerebral artery territory. These results were reported by Dr. Paul to Dr. Martinez on 01/04/2013 at 9:40 PM. This report was electronically signed by BRET TUCKER M.D. on 01/05/2013 8:53 AM . Narrative 01/05/2013 8:53 AM CDT EXAMINATION: Computed tomography (CT) of the head and neck without and with contrast HISTORY: Dizziness, confusion, slurred speech. Right middle cerebral artery territory ischemic stroke. TECHNIQUE: CT of the head was performed without contrast according to standard protocol. Then CT angiography of the head and neck was obtained after the uneventful administration of 50 mL of Omnipaque 350 intravenous contrast. Three dimensional postprocessing was performed by the technologist and sent to the workstation for review. FINDINGS: Comparison is made to outside institution head CT from 01/04/2013. Head and neck: There has been interval evolution of a region of hypoattenuation involving the cortex and extending into the subcortical white matter/right centrum semiovale consistent with right middle cerebral artery territory infarction. No evidence of hemorrhagic conversion is identified. No significant mass effect or midline shift is noted. The basilar cisterns are patent. The gaytan-white matter differentiation is otherwise maintained. The orbits appear normal. The mastoid air cells are clear. Mild mucosal thickening in the maxillary sinuses with small mucous retention cysts. No acute fracture is identified. There is a 4 mm hypoattenuating nodule in the right lobe of the thyroid. The airway appears patent. Fascial planes in the neck are preserved. Calcified lymph nodes are noted in the upper mediastinum. Moderate degenerative disc disease is present throughout much of the cervical spine dating to to moderate to severe central canal stenosis most pronounced at C6-7. Uncovertebral and facet arthropathy is also present at multiple levels leading to neuroforaminal stenosis also most pronounced at C6-7 bilaterally. Angiographic findings: There is a three-vessel aortic arch. The right common carotid artery appears normal. The right carotid bifurcation appears normal. The right internal carotid artery appears normal. The left common carotid artery appears normal. The left carotid bifurcation demonstrates minimal atherosclerotic plaque without significant stenosis. The left internal carotid artery appears normal. The left vertebral artery is dominant and appears normal. The right vertebral artery appears normal. The A1 segment of the left anterior cerebral artery is mildly diminutive when compared with the right. The M1 segments appear normal bilaterally. In a right M2 branch extending anteriorly just distal to the right middle cerebral artery bifurcation there is a relative paucity of contrast opacification extending peripherally to the region of infarction when compared with a similar region on the left. This can be seen in series 14, image 206 extending to image 85. No aneurysm is identified. The posterior cerebral arteries appear normal. Procedure Note Bret Tucker MD - 10/28/2017 EXAMINATION: Computed tomography (CT) of the head and neck without andwith contrast HISTORY: Dizziness, confusion, slurred speech. Right middle cerebralartery territory ischemic stroke. TECHNIQUE: CT of the head was performed without contrast according tostandard protocol. Then CT angiography of the head and neck was obtainedafter the uneventful administration of 50 mL of Omnipaque 350 intravenouscontrast. Three dimensional postprocessing was performed by the technologist and sent to theworkstation for review. FINDINGS: Comparison is made to outside institution head CT from01/04/2013. Head and neck: There has been interval evolution of a region of hypoattenuation involvingthe cortex and extending into the subcortical white matter/right centrumsemiovale consistent with right middle cerebral artery territoryinfarction. No evidence of hemorrhagic conversion is identified. No significant mass effect or midline shift isnoted. The basilar cisterns are patent. The gaytan-white matterdifferentiation is otherwise maintained. The orbits appear normal. Themastoid air cells are clear. Mild mucosal thickening in the maxillary sinuses with small mucous retention cysts. Noacute fracture is identified. There is a 4 mm hypoattenuating nodule in the right lobe of the thyroid.The airway appears patent. Fascial planes in the neck are preserved.Calcified lymph nodes are noted in the upper mediastinum. Moderatedegenerative disc disease is present throughout much of the cervical spine dating to to moderate to severecentral canal stenosis most pronounced at C6-7. Uncovertebral and facetarthropathy is also present at multiple levels leading to neuroforaminalstenosis also most pronounced at C6- 7 bilaterally. Angiographic findings: There is a three-vessel aortic arch. The right common carotid arteryappears normal. The right carotid bifurcation appears normal. The rightinternal carotid artery appears normal. The left common carotid arteryappears normal. The left carotid bifurcation demonstrates minimal atherosclerotic plaque withoutsignificant stenosis. The left internal carotid artery appears normal. Theleft vertebral artery is dominant and appears normal. The right vertebralartery appears normal. The A1 segment of the left anterior cerebral artery is mildly diminutive when compared withthe right. The M1 segments appear normal bilaterally. In a right M2 branchextending anteriorly just distal to the right middle cerebral arterybifurcation there is a relative paucity of contrast opacification extending peripherally to the region ofinfarction when compared with a similar region on the left. This can beseen in series 14, image 206 extending to image 85. No aneurysm isidentified. The posterior cerebral arteries appear normal. IMPRESSION IMPRESSION: 1. Evolving right middle cerebral artery territory infarction withouthemorrhagic conversion. In a right M2 branch passing anteriorlyimmediately distal to the right middle cerebral artery bifurcation thereis a relative paucity of contrast opacification extending peripherally to the region of infarction when compared with asimilar region in the left middle cerebral artery territory. These results were reported by Dr. Paul to Dr. Martinez on 01/04/2013 at 9:40PM. This report was electronically signed by BRET TUCKER M.D. on 01/05/20138:53 AM . Shailesh Talamantes MD CT ORDERABLES * (ABNORMAL) URINALYSIS W/MICROSCOPIC NO CULTURE (01/04/2013 8:25 PM CDT) Color UA YELLOW STRW,YELLOW [facility] Clarity UA CLEAR CLEAR [facility] Specific [place] Urine 1.011 1.001 - 1.030 [facility] pH UA 6.5 5.0 - 8.0 [facility] Protein UA NEGATIVE <20 mg/dL [facility] Glucose UA NEGATIVE NEGATIVE mg/dL [facility] Ketones NEGATIVE NEGATIVE mg/dL [facility] Bilirubin UA NEGATIVE NEGATIVE mg/dL [facility] Blood UA NEGATIVE NEGATIVE [facility] Nitrite UA NEGATIVE NEGATIVE [facility] Leukocyte Esterase NEGATIVE NEGATIVE [facility] Urobilinogen UA < 2.0 <2.0 mg/dL [facility] RBC Urine < 1 0 - 8 /HPF [facility] WBC Urine < 1 0 - 2 /HPF [facility] Bacteria Urine RARE <OCCASIONAL /HPF [facility] Mucus Urine OCCASIONAL( A) NONE SEEN /LPF [facility] Urine specimen (specimen) URINE SPECIMEN OBTAINED BY CLEAN CATCH PROCEDURE / Unknown 01/04/2013 8:25 PM CDT 01/04/2013 8:42 PM CDT Shailesh Talamantes MD LAB - URINALYSIS ORD ERABLES Performing Organization Address City/State/[facility] Co de Phone Number [address] [phone] * DRUG ABUSE PANEL 10-20+ETHANOL URINE NO CONFIRM (01/04/2013 8:25 PM CDT) Amphetamines NEGATIVE NEGATIVE [facility] Comment:Positive Cutoff: >=1 000 ng/mL Barbiturate NEGATIVE NEGATIVE [facility] Comment:Positive Cutoff: >=2 00 ng/mL Benzodiazepine Screen Urine NEGATIVE NEGATIVE [facility] Comment:Positive Cutoff: >=2 00 ng/mL Opiates NEGATIVE NEGATIVE [facility] Comment:Positive Cutoff: >=3 00 ng/mL Cocaine Metabolite Urine NEGATIVE NEGATIVE [facility] Comment:Positive Cutoff: >=3 00 ng/mL Phencyclidine Screen Urine NEGATIVE NEGATIVE [facility] Comment:Positive Cutoff: >=2 5 ng/mL Cannabinoids Screen Urine NEGATIVE NEGATIVE [facility] Comment:Positive Cutoff: >=5 0 ng/mL Methadone NEGATIVE NEGATIVE [facility] Comment:Positive Cutoff: >=3 00 ng/mL Note SEE NOTE [facility] Comment: Positive results should be confirmed by another generally accepted non-immunological method such as gas chromatography or mass spectrometry. Toxicology testing by the [facility] is an aid to medical diagnosis and treatment of patients. No documented chain of custody was maintained. Results are intended to be used for clinical purposes only. Note SEE NOTE [facility] Comment: The UTOX Panel does not screen for Propoxyphene, Meprobamate, Carisoprodol, Trazodone, [id number] medications and/or volatiles (Acetone, Isopropanol, Methanol, Ethylene Glycol). Ethanol, Salicylate, Acetaminophen, Tricyclic Antidepressants and several therapeutic drugs may be individually assayed in a serum specimen. Urine specimen (specimen) URINE SPECIMEN OBTAINED BY CLEAN CATCH PROCEDURE / Unknown 01/04/2013 8:25 PM CDT 01/04/2013 8:44 PM CDT Shailesh Talamantes MD LAB - URINE CHEMISTR Y ORDERABLES [address] [phone] * ECHO W DOPPLER AND COLOR FLOW (01/04/2013 12:00 AM CDT) Anatomical Region Laterality Modality Other 01/04/2013 Shailesh Talamantes MD ECHOCARDIOGRAPHY RAD IANT Care Teams Turbinated Bone Grinder Relationship Specialty Start Date End Date Herlinda Maddox MD [address] [place], [place] [id number] PCP - General Internal Medicine 09/28/17
--- OUTSIDE RECORDS SUMMARY | 2024-10-02 17:25 | XMS_ITS | Clinical Summary ---
Author Organization [facility] [employer] Address [address] [place] [address] Care Team Providers Care Salvage Winder Name Role Phone Pedrito Maddox MD Primary Care Provider [phone] Source Comments [facility] [employer],non-owned Affiliates and Associated Physician Practices is amultiple site organization consisting of ambulatory clinics and hospital sitesin [place], [place], [place] and [place]. This disclosure is being madepursuant to the Care Everywhere program and may not contain all information available regarding this patient. Last updated 18.[facility] [employer] Allergies Active Allergy Reactions Criticality Noted Date Comments Penicillins Anaphylaxis High 09/21/2018 Medications * Be aware that medications may not be up to date on this document. Alwaysverify current medications with the patient. Medication Sig Dispensed Refills Start Date End Date Status AMLODIPINE BESYLATE PO Active PRAVASTATIN SODIUM PO Act margot CLOPIDOGREL BISULFATE PO Active HYDROCHLOROTHIAZIDE PO Active QUINAPRIL HCL PO Active oxyCODONE-acetaminoph en (PERCOCET) 5-325 MG tablet Take 2 tablets by mouth every 6 hours as needed 56 tablet 09/27/2018 Active Active Problems Problem Noted Date Diagnosed [...] Comments Blood Pressure 136/84 09/27/2018 3:36 PM PUMP ATTENDANT Pulse 64 09/27/2018 3:36 PM PUMP ATTENDANT Temperature 37 C (98.6 F) 09/27/2018 3:36 PM PUMP ATTENDANT Respiratory Rate 16 09/27/2018 3:36 PM PUMP ATTENDANT Oxygen Saturation 95% 09/27/2018 3:36 PM PUMP ATTENDANT Inhaled Oxygen Concentration - - Weight 91.6 kg (202 lb) 09/20/2018 6:29 PM PUMP ATTENDANT Height 180.3 cm (5' 11 ) 09/20/2018 6:29 PM PUMP ATTENDANT Body Mass Index 28.17 09/20/2018 6:29 PM PUMP ATTENDANT Plan of Treatment Health Maintenance Due Date Last Done Comments COLOGUARD (AGES 45-75) - COLON CA SCREENING 1954 COLON MONITORING 1954 COLONOSCOPY - COLON CA SCREENING 1954 CT COLONOGRAPHY - COLON CA SCREENING 1954 Colorectal Cancer Screening 1954 FIT - COLON CA SCREENING 1954 FLEX SIG - COLON CA SCREENING 1954 HEPATITIS C SCREENING 06/02/1972 DTAP/TDAP/TD VACCINES (1 - Tdap) 1973 PNEUMOCOCCAL VACCINE 50+ (1 of 1 - PCV) 2004 ZOSTER VACCINE (1 of 2) 2004 SCREENING FOR DIABETES 09/27/2021 9, 09/23/2018, 09/22/2018, Additional history exists COVID-19 VACCINE ( - 2023- season) 2024 INFLUENZA VACCINE (#1) 2024 DEPRESSION SCREENING 07/30/2024 Respiratory Syncytial Virus (RSV) Vaccine Pt: or over 60 yrs (1 - 1-dose 75+ series) 2029 HEPATITIS B VACCINE Aged Out No longe r eligible based on patient's age to complete this topic HIB VACCINE Aged Out No longer eligi ble based on patient's age to complete this topic HPV VACCINE Aged Out No longer eligi ble based on patient's age to complete this topic MENINGOCOCCAL (Group B) VACCINE Aged Out No longer eligible based on patient's age to complete this topic MENINGOCOCCAL VACCINE Aged Out No nano dwayne eligible based on patient's age to complete this topic Procedures Procedure Name Priority Date/Time Associated Diagnosis Comments COMPREHENSIVE METABOLIC PANEL STAT 09/27/2018 7:22 AM PUMP ATTENDANT from Last 3 Months or Most Recently Relevant to Health Maintenance Results * (ABNORMAL) COMPREHENSIVE METABOLIC PANEL (09/27/2018 7:22 AM [facility]) BUN 22 7 - 26 mg/dL 09/27/2018 7:46 AM [facility] Creatinine 1.2 0.6 - 1.2 mg/dL 09/27/2018 7:46 AM [facility] Sodium 139 136 - 145 mmol/L 09/27/2018 7:46 AM [facility] Potassium 4.1 3.5 - 4.5 mmol/L 09/27/2018 7:46 AM [facility] Chloride 104 98 - 107 mmol/L 09/27/2018 7:46 AM [facility] CO2 26 22 - 29 mmol/L 09/27/2018 7:46 AM [facility] Glucose 88 70 - 115 mg/dL 09/27/2018 7:46 AM [facility] Calcium 9.5 8.4 - 10.2 mg/dL 09/27/2018 7:46 AM [facility] Protein Total 6.2 6.0 - 8.3 g/dL 09/27/2018 7:46 AM [facility] Albumin 3.0(L) 3.4 - 5.0 g/dL 09/27/2018 7:46 AM [facility] Bilirubin Total 1.2 0.2 - 1.2 mg/dL 09/27/2018 7:46 AM [facility] Alkaline Phosphatase 73 40 - 150 Units/L 09/27/2018 7:46 AM [facility] ALT 49 0 - 55 Units/L 09/27/2018 7:46 AM [facility] AST 19 5 - 34 Units/L 09/27/2018 7:46 AM [facility] Anion Gap 13 8 - 18 09/27/2018 7:46 AM [facility] BUN/Creatinine Ratio 18 7 - 23 09/27/2018 7:46 AM [facility] Osmolality Calculated 291 270 - 300 mOsm/kg 09/27/2018 7:46 AM [facility] Albumin/Globulin Ratio 0.9(L) 1.1 - 2.3 09/27/2018 7:46 AM [facility] eGFR >60 >60 mL/min/1.7 3 m2 09/27/2018 7:46 AM [facility] Blood BLOOD SPECIMEN / Unknown Lab Venipuncture / Unknown 09/27/2018 7:22 AM PUMP ATTENDANT 09/27/2018 7:26 AM PUMP ATTENDANT Casey Ewing MD LAB - CHEMISTRY ORDERABLES [facility] [address] [phone] from Last 3 Months or Most Recently Relevant to Health Maintenance Advance Directives Documents on File Type Date Recorded Patient Carbon Accountant Expl anation Adv Directive/Living Will/POA 10/05/2018 3:33 PM * Full Code (Latest Code Status on File) Date Activated Date Inactivated Comments 09/20/2018 10:31 PM 09/27/2018 8:30 PM Care Teams Salvage Winder Relationship Specialty Start Date End Date Pedrito Maddox MD [address] [place] [address] 2 [place] [address] PCP - General Internal Medicine 09/28/17
--- OUTSIDE RECORDS SUMMARY | 2024-10-02 17:25 | XMS_ITS | Referral Summary ---
Author Organization [facility] [employer] Address [address] [place] [address] Care Team Providers Care Production Controller Name Role Phone Pedrito Maddox MD Primary Care Provider [phone] Source Comments [facility] [employer],non-[facility] Affiliates and Associated Physician Practices is amultiple site organization consisting of ambulatory clinics and hospital sitesin [place], [place], [place] and [place]. This disclosure is being madepursuant to the Care Everywhere program and may not contain all information available regarding this patient. Last updated 18.[facility] [employer] Allergies Active Allergy Reactions Criticality Noted Date [...] Comments Blood Pressure 136/84 09/27/2018 3:36 PM PRE K LEAD TEACHER Pulse 64 09/27/2018 3:36 PM PRE K LEAD TEACHER Temperature 37 C (98.6 F) 09/27/2018 3:36 PM PRE K LEAD TEACHER Respiratory Rate 16 09/27/2018 3:36 PM PRE K LEAD TEACHER Oxygen Saturation 95% 09/27/2018 3:36 PM PRE K LEAD TEACHER Inhaled Oxygen Concentration - - Weight 91.6 kg (202 lb) 09/20/2018 6:29 PM PRE K LEAD TEACHER Height 180.3 cm (5' 11 ) 09/20/2018 6:29 PM PRE K LEAD TEACHER Body Mass Index 28.17 09/20/2018 6:29 PM PRE K LEAD TEACHER Functional Status Functional Status Response Date of Assess ment Is person deaf or have serious hearing difficult y? No 09/27/2018 Is person blind or have serious difficulty seein g? No 09/27/2018 Does person have serious dif ficulty walking/climbing stairs? No 09/27/2018 Does person have difficulty dressing/bathing? No 09/27/2018 Does person have difficulty doing errands alone? No 09/27/2018 Cognitive Status Response Date of Assessm ent Does person have difficulty concentrating/remembering/making decisions? No 09/27/2018 Plan of Treatment Not on file Procedures Procedure Name Priority Date/Time Associated Diagnosis Comments COMPREHENSIVE METABOLIC PANEL STAT 09/27/2018 7:22 AM PRE K LEAD TEACHER from Last 3 Months or Most Recently Relevant to Health Maintenance Results * (ABNORMAL) COMPREHENSIVE METABOLIC PANEL (09/27/2018 7:22 AM PRE K LEAD TEACHER) BUN 22 7 - 26 mg/dL 09/27/2018 7:[address] [facility] Creatinine 1.2 0.6 - 1.2 mg/dL 09/27/2018 7:[address] [facility] Sodium 139 136 - 145 mmol/L 09/27/2018 7:[address] [facility] Potassium 4.1 3.5 - 4.5 mmol/L 09/27/2018 7:[address] [facility] Chloride 104 98 - 107 mmol/L 09/27/2018 7:[address] [facility] CO2 26 22 - 29 mmol/L 09/27/2018 7:[address] [facility] Glucose 88 70 - 115 mg/dL 09/27/2018 7:[address] [facility] Calcium 9.5 8.4 - 10.2 mg/dL [...] Lab Venipuncture / Unknown 09/27/2018 7:22 AM [facility] 09/27/2018 7:26 AM [facility] Casey Ewing MD LAB - CHEMISTRY ORDERABLES [address] [phone] from Last 3 Months or Most Recently Relevant to Health Maintenance Advance Directives Documents on File Type Date Recorded Patient Daily Release And Dupe Printer Expl anation Adv Directive/Living Will/POA 10/05/2018 3:33 PM * Full Code (Latest Code Status on File) Date Activated Date Inactivated Comments 09/20/2018 10:31 PM 09/27/2018 8:30 PM Care Teams Production Controller Relationship Specialty Start Date End Date Pedrito Maddox MD [address] [place] [id number] PCP - General Internal Medicine 09/28/17
[2024-10-02] MEDS: TETANUS,DIPHTHERIA,AC PERTUSSIS ADULT (0.5 ML) BOOSTRIX IM (20:59)
--- NOTE | 2024-10-02 20:59 | ED_ITS ---
HPI - Wound/Laceration General Chief Complaint: Wound/Laceration Stated Complaint: HEAD LAC-FALL Time Seen by Provider: 10/02/24 20:32 Source: patient Mode of arrival: ambulatory Limitations: no limitations History of Present Illness HPI narrative: This is a 6-year-old male that presents to the emergency department for lacerations to the forehead. Reports he tripped and fell forward. Hit his face on the concrete. He did not lose consciousness. Denies any other injuries or focal areas of pain. Denies vision changes, vomiting, numbness, weakness, neck pain. Related Data Home Medications ?Medication ?Instructions ?Recorded ?Confirmed ?Last Taken ?Type pravastatin 40 mg tablet 40 mg PO DAILY 03/14/22 07/16/24 Unknown History finasteride 5 mg tablet 5 mg PO DAILY 07/16/24 07/16/24 Unknown History Allergies Allergy/AdvReac Type Severity Reaction Status Date / Time Penicillins Allergy Unknown unknown Verified 07/16/24 13:32 Review of Systems Review of Systems: CONSTITUTIONAL: Denies fever EYES: Denies visual changes GASTROINTESTINAL: Denies vomiting NEUROLOGIC: Denies numbness, or weakness. All systems reviewed & are unremarkable except as noted in HPI and below PMFSH Past Medical History Medical History Back pain at L4-L5 level Body mass index [BMI] 26.0-26.9, adult (05/18/17) Body mass index [BMI] 27.0-27.9, adult (07/26/17) Body mass index [BMI] 28.0-28.9, adult (08/03/16) Body mass index [BMI] 45.0-49.9, adult (03/07/18) Carpal tunnel syndrome, bilateral Cerebrovascular accident (CVA) Cervical radiculopathy Chronic right-sided thoracic back pain Cough DISH (diffuse idiopathic skeletal hyperostosis) Encounter for screening colonoscopy Fatigue HTN (hypertension), benign Injury of digital nerve of right thumb, initial encounter 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 Other chronic pain Paresthesia of both hands Preoperative clearance Sleep apnea, unspecified Strain of left hamstring Strain of lumbar region Viral syndrome Hypertension Screening PSA (prostate specific antigen) HLD (hyperlipidemia) Surgical History Surgical History Status post cervical discectomy Family History Family History Mother Cerebrovascular accident, Onset Age: 91 Patient's mother is in good health Sibling Cerebrovascular accident, Onset Age: 58 Social History Social History Smoking status: Never smoker Alcohol intake: never Substance use: never Do You Feel Safe in your Home?: Yes Lack of Transportation: No Lack of Food: Never True Current Housing: I Have Housing Concerned About Future Housing: No Difficulty Paying Gas/Electric Bills: No Difficulty Paying for Meds: No Currently Unemployed: No Education: Decline to Answer Difficulty w/ Childcare or Family Care: No Exam Narrative: GENERAL: Well-appearing, well-nourished, and in no acute distress. HEAD: Normocephalic. Two linear laceration into subcutaneous tissue to the forehead, each measuring 4cm EYES: PERRLA and EOMI. ENT: Nares clear, no rhinorrhea or epistaxis. Mucous membranes moist. Oropharynx without tonsillar hypertrophy exudate or other lesions. Bilateral TMs pearly gaytan non-bulging NECK: Supple. No adenopathy or masses. No midline spinal tenderness CHEST: Clear to auscultation. No respiratory distress. No wheezes rales or rhonchi HEART: Regular rate and rhythm. No murmur heard. Normal peripheral pulses. EXTREMITIES: Normal range of motion. No edema. Strength equal in bilateral upper extremities (5/5) SKIN: Warm, dry, no rash. NEURO: No focal deficits. Alert and oriented x3. Cranial nerves 2-12 grossly intact. Normal gait PSYCH: Normal mood and affect Course Course Emergency Course: patient and family educated on further wound care. Updated on workup Vital Signs Vital signs: Vital Signs Temperature 97.9 F 10/02/24 17:24 Pulse Rate 61 10/02/24 17:24 Respiratory Rate 18 10/02/24 17:24 Blood Pressure 184/89 H 10/02/24 17:24 Pulse Oximetry 97 10/02/24 17:24 Temperature 97.9 F 10/02/24 17:24 Pulse Rate 61 10/02/24 17:24 Respiratory Rate 18 10/02/24 17:24 Blood Pressure 184/89 H 10/02/24 17:24 Pulse Oximetry 97 10/02/24 17:24 Procedures Laceration Laceration 1: Date: 10/02/24 Time: 22:38 Site: face Size (cm): 4 Description: irregular Depth: simple, single layer Local Anesthetic: with epi Amount of anesthesia used (mL): 2 Pre-repair: wound explored, irrigated and other (glass removal) ====== Skin Level ====== Skin layer closed with: nylon Size (cm): 5-0 Number of sutures: 4 Technique: simple, interrupted ====== Subcutaneous Layer ====== ====== Muscle Layer ====== ====== Tendon Layer ====== Laceration 2: Date: 10/02/24 Time: 22:39 Site: face Size (cm): 4 Description: linear Depth: simple, single layer Local Anesthetic: lidocaine 1% and with epi Amount of anesthesia used (mL): 2 Pre-repair: wound explored and irrigated ====== Skin Level ====== Skin layer closed with: nylon Size (cm): 5-0 Number of sutures: 5 Technique: simple, interrupted ====== Subcutaneous Layer ====== ====== Muscle Layer ====== ====== Tendon Layer ====== MDM - Wound/Laceration MDM Narrative Medical decision making narrative: Patient presents emergency department after a trip and fall today with head injury. He is neurologically intact. CT brain without acute findings. He had 2 lacerations which were cleansed and closed with sutures. He was updated on tetanus vaccination. patient and family educated on further wound care. Updated on workup. He was given warnings to return to the ER Differential Diagnosis Differential diagnosis: Likely laceration, abrasion, avulsion of skin and other (Subdural hematoma, concussion) Imaging Data Radiologist's impression: ITS Impressions Head CT 10/02/24 17:56 IMPRESSION: No acute intracranial findings. Critical Care Time Critical Care Time Critical Care Time: No Discharge Plan Discharge Clinical Impression: Laceration Head injury Qualifiers: Encounter type: initial encounter Qualified Code(s): S09.90XA - Unspecified injury of head, initial encounter Patient Disposition: Home, Self-Care Condition: Stable Instructions: Antibiotic Form, Care For Your Stitches (ED), Laceration (ED), Head Injury (ED) Additional Instructions: Return to the emergency department if you experience fever, redness or swelling of your wound, abnormal drainage from your wound, vomiting, numbness, weakness, or any other symptoms that are concerning to you. Rest. Ice to the area. Apply antibiotic ointment daily. Clean with mild soap and water daily. Take oral antibiotic as prescribed Follow-up with your primary care doctor for suture removal in 3-5 days Patient Language: Zimbabwean Prescriptions: New cephalexin 500 mg capsule 500 mg PO Q8H 5 Days Qty: 15 0RF No Action finasteride 5 mg tablet 5 mg PO DAILY pravastatin 40 mg tablet 40 mg PO DAILY clopidogrel 75 mg tablet See Rx Instructions .ROUTE .COMPLEX Qty: 90 2RF Dose Instruction: TAKE 1 TABLET BY MOUTH DAILY Rx Instructions: TAKE 1 TABLET BY MOUTH DAILY amlodipine 10 mg tablet See Rx Instructions .ROUTE .COMPLEX Qty: 90 2RF Dose Instruction: TAKE 1 TABLET BY MOUTH DAILY Rx Instructions: TAKE 1 TABLET BY MOUTH DAILY losartan 50 mg tablet See Rx Instructions .ROUTE .COMPLEX Qty: 90 2RF Dose Instruction: TAKE 1 TABLET BY MOUTH DAILY Rx Instructions: TAKE 1 TABLET BY MOUTH DAILY tamsulosin 0.4 mg capsule See Rx Instructions .ROUTE .COMPLEX Qty: 90 2RF Dose Instruction: TAKE 1 CAPSULE BY MOUTH DAILY Rx Instructions: TAKE 1 CAPSULE BY MOUTH DAILY gabapentin 300 mg capsule See Rx Instructions .ROUTE .COMPLEX Qty: 90 2RF Dose Instruction: TAKE 1 CAPSULE BY MOUTH EVERY DAY AT BEDTIME Rx Instructions: TAKE 1 CAPSULE BY MOUTH EVERY DAY AT BEDTIME Follow-up/Referrals: Pedrito Maddox MD [Primary Care Provider] - 3 Days
--- OUTSIDE RECORDS SUMMARY | 2024-10-02 21:31 | XMS_ITS | Clinical Summary ---
Author Organization [facility] [employer] Address [address] [place] [address] Care Team Providers Care Tank Carpenter Name Role Phone Pedrito Maddox MD Primary Care Provider [phone] Source Comments [facility] [employer],non-owned Affiliates and Associated Physician Practices is amultiple site organization consisting of ambulatory clinics and hospital sitesin [place], [place], [place] and [place]. This disclosure is being madepursuant to the Care Everywhere program and may not contain all information available regarding this patient. Last updated 18.[facility] [employer] Allergies Active Allergy Reactions Criticality Noted Date [...] Comments Blood Pressure 136/84 09/27/2018 3:36 PM METAL MILLING MACHINE OPERATOR Pulse 64 09/27/2018 3:36 PM METAL MILLING MACHINE OPERATOR Temperature 37 C (98.6 F) 09/27/2018 3:36 PM METAL MILLING MACHINE OPERATOR Respiratory Rate 16 09/27/2018 3:36 PM METAL MILLING MACHINE OPERATOR Oxygen Saturation 95% 09/27/2018 3:36 PM METAL MILLING MACHINE OPERATOR Inhaled Oxygen Concentration - - Weight 91.6 kg (202 lb) 09/20/2018 6:29 PM METAL MILLING MACHINE OPERATOR Height 180.3 cm (5' 11 ) 09/20/2018 6:29 PM METAL MILLING MACHINE OPERATOR Body Mass Index 28.17 09/20/2018 6:29 PM METAL MILLING MACHINE OPERATOR Plan of Treatment Health Maintenance Due Date [...] COMPREHENSIVE METABOLIC PANEL STAT 09/27/2018 7:22 AM METAL MILLING MACHINE OPERATOR from Last 3 Months or Most Recently Relevant to Health Maintenance Results * (ABNORMAL) COMPREHENSIVE METABOLIC PANEL (09/27/2018 7:22 AM [facility]) BUN 22 7 - 26 mg/dL 09/27/2018 7:46 AM [facility] Creatinine 1.2 0.6 - 1.2 mg/dL 09/27/2018 7:46 AM [facility] Sodium 139 136 - 145 mmol/L 09/27/2018 7:46 AM [facility] Potassium 4.1 3.5 - 4.5 mmol/L 09/27/2018 7:46 AM [facility] Chloride 104 98 - 107 mmol/L 09/27/2018 7:46 AM [facility] CO2 26 22 - 29 mmol/L 09/27/2018 7:46 AM [facility] Glucose 88 70 - 115 mg/dL 09/27/2018 7:46 AM [facility] Calcium 9.5 8.4 - 10.2 mg/dL 09/27/2018 7:46 AM [facility] Protein Total 6.2 6.0 - 8.3 g/dL 09/27/2018 7:46 AM [facility] Albumin 3.0(L) 3.4 - 5.0 g/dL 09/27/2018 7:46 AM [facility] Bilirubin Total 1.2 0.2 - 1.2 mg/dL 09/27/2018 7:46 AM [facility] Alkaline Phosphatase 73 40 - 150 Units/L 09/27/2018 7:46 AM [facility] ALT 49 0 - 55 Units/L 09/27/2018 7:46 AM [facility] AST 19 5 - 34 Units/L 09/27/2018 7:46 AM [facility] Anion Gap 13 8 - 18 09/27/2018 7:46 AM [facility] BUN/Creatinine Ratio 18 7 - 23 09/27/2018 7:46 AM [facility] Osmolality Calculated 291 270 - 300 mOsm/kg 09/27/2018 7:46 AM [facility] Albumin/Globulin Ratio 0.9(L) 1.1 - 2.3 09/27/2018 7:46 AM [facility] eGFR >60 >60 mL/min/1.7 3 m2 09/27/2018 7:46 AM [facility] Blood BLOOD SPECIMEN / Unknown Lab Venipuncture / Unknown 09/27/2018 7:22 AM METAL MILLING MACHINE OPERATOR 09/27/2018 7:26 AM METAL MILLING MACHINE OPERATOR Casey Ewing MD LAB - CHEMISTRY ORDERABLES [facility] [address] [phone] from Last 3 Months or Most Recently Relevant to Health Maintenance Advance Directives Documents on File Type Date Recorded Patient Electronics Detail Draftsperson Expl anation Adv Directive/Living Will/POA 10/05/2018 3:33 PM * Full Code (Latest Code Status on File) Date Activated Date Inactivated Comments 09/20/2018 10:31 PM 09/27/2018 8:30 PM Care Teams Tank Carpenter Relationship Specialty Start Date End Date Pedrito Maddox MD [address] [place] [address] [address] [place] [address] PCP - General Internal Medicine 09/28/17
--- OUTSIDE RECORDS SUMMARY | 2024-10-02 21:31 | XMS_ITS | Referral Summary ---
Author Organization [facility] Address [address] [address] Care Team Providers Care Trimming Operator Name Role Phone Pedrito Maddox MD Primary Care Provider [phone] Source Comments [facility],non-[facility] Affiliates and Associated Physician Practices is amultiple site organization consisting of ambulatory clinics and hospital sitesin [place], [place], [place] and [place]. This disclosure is being madepursuant to the Care Everywhere program and may not contain all information available regarding this patient. Last updated 18.[facility] Allergies Active Allergy Reactions Criticality Noted Date [...] Comments Blood Pressure 136/84 09/27/2018 3:36 PM SUPERVISOR PAPER COATING Pulse 64 09/27/2018 3:36 PM SUPERVISOR PAPER COATING Temperature 37 C (98.6 F) 09/27/2018 3:36 PM SUPERVISOR P[employer] COATING Respiratory Rate 16 09/27/2018 3:36 PM SUPERVIS[employer] PAP[employer] COATING Oxygen Saturation 95% 09/27/2018 3:36 PM SUPERVISOR P[employer] COATING Inhaled Oxygen Concentration - - Weight 91.6 kg (202 lb) 09/20/2018 6:29 PM SUPERVIS[employer] P[employer] COATING Height 180.3 cm (5' 11 ) 09/20/2018 6:29 PM SUPERVIS[employer] P[employer] COATING Body Mass Index 28.17 09/20/2018 6:29 PM SUPERVISOR P[employer] COATING Functional Status Functional Status Response Date of [...] COMPREHENSIVE METABOLIC PANEL STAT 09/27/2018 7:22 AM SUPERVISOR PAP[employer] COATING from Last 3 Months or Most Recently Relevant to Health Maintenance Results * (ABNORMAL) COMPREHENSIVE METABOLIC PANEL (09/27/2018 7:22 AM SUPERVIS[employer] P[employer] COATING) BUN 22 7 - 26 mg/dL 09/27/2018 7:46 AM [facility] Creatinine 1.2 0.6 - 1.2 mg/dL 09/27/2018 7:46 AM [facility] Sodium 139 136 - 145 mmol/L 09/27/2018 7:46 AM [facility] Potassium 4.1 3.5 - 4.5 mmol/L 09/27/2018 7:46 AM [facility] Chloride 104 98 - 107 mmol/L 09/27/2018 7:46 AM [facility] CO2 26 22 - 29 mmol/L 09/27/2018 7:46 AM [facility] Glucose 88 70 - 115 mg/dL 09/27/2018 7:46 AM [facility] Calcium 9.5 8.4 - 10.2 mg/dL 09/27/2018 7:46 AM [facility] Protein Total 6.2 6.0 - 8.3 g/dL 09/27/2018 7:46 AM [facility] Albumin 3.0(L) 3.4 - 5.0 g/dL 09/27/2018 7:46 AM [facility] Bilirubin Total 1.2 0.2 - 1.2 mg/dL 09/27/2018 7:46 AM [facility] Alkaline Phosphatase 73 40 - 150 Units/L 09/27/2018 7:46 AM [facility] ALT 49 0 - 55 Units/L 09/27/2018 7:46 AM [facility] AST 19 5 - 34 Units/L 09/27/2018 7:46 AM [facility] Anion Gap 13 8 - 18 09/27/2018 7:46 AM [facility] BUN/Creatinine Ratio 18 7 - 23 09/27/2018 7:46 AM [facility] Osmolality Calculated 291 270 - 300 mOsm/kg 09/27/2018 7:46 AM [facility] Albumin/Globulin Ratio 0.9(L) 1.1 - 2.3 09/27/2018 7:46 AM [facility] eGFR >60 >60 mL/min/1.7 3 m2 09/27/2018 7:46 AM [facility] Blood BLOOD SPECIMEN / Unknown Lab Venipuncture / Unknown 09/27/2018 7:22 AM [facility] 09/27/2018 7:26 AM [facility] Casey Ewing MD LAB - CHEMISTRY ORDERABLES [address] [phone] from Last 3 Months or Most Recently Relevant to Health Maintenance Advance Directives Documents on File Type Date Recorded Patient Merchandising Manager Expl anation Adv Directive/Living Will/POA 10/05/2018 3:33 PM * Full Code (Latest Code Status on File) Date Activated Date Inactivated Comments 09/20/2018 10:31 PM 09/27/2018 8:30 PM Care Teams Trimming Operator Relationship Specialty Start Date End Date Pedrito Maddox MD [address] [place] [id number] PCP - General Internal Medicine 09/28/17
--- OUTSIDE RECORDS SUMMARY | 2024-10-02 21:31 | XMS_ITS | Patient Health Summary ---
Author Organization [facility] Address [address] [place] [address] Care Team Providers Care Belt Picker Name Role Phone Herlinda Maddox MD Primary Care Provider [phone] Note from [facility],non-owned Affiliates and Associated Physician Practices is amultiple site organization consisting of ambulatory clinics and hospital sitesin [place], [place], [place] and [place]. This disclosure is being madepursuant to the Care Everywhere program and may not contain all information available regarding this patient. Last updated 18.[facility] Allergies * Penicillins(Anaphylaxis) -High Criticality Medications * [...] Comments Blood Pressure 136/84 09/27/2018 3:36 PM PLATFORM MATERIAL HANDLING SUPERVISOR Pulse 64 09/27/2018 3:36 PM PLATFORM MATERIAL HANDLING SUPERVISOR Temperature 37 C (98.6 F) 09/27/2018 3:36 PM PLATFORM MATERIAL HANDLING SUPERVISOR Respiratory Rate 16 09/27/2018 3:36 PM PLATFORM MATERIAL HANDLING SUPERVISOR Oxygen Saturation 95% 09/27/2018 3:36 PM PLATFORM MATERIAL HANDLING SUPERVISOR Inhaled Oxygen Concentration - - Weight 91.6 kg (202 lb) 09/20/2018 6:29 PM PLATFORM MATERIAL HANDLING SUPERVISOR Height 180.3 cm (5' 11 ) 09/20/2018 6:29 PM PLATFORM MATERIAL HANDLING SUPERVISOR Body Mass Index 28.17 09/20/2018 6:29 PM PLATFORM MATERIAL HANDLING SUPERVISOR Procedures * COMPREHENSIVE METABOLIC PANEL(Performed 09/27/2018) * [...] (ABNORMAL) CBC W/O DIFFERENTIAL (09/27/2018 7:22 AM [facility]) WBC 13.8(H) 3.5 - 10.5 10 3/uL 09/27/2018 7:29 AM [facility] RBC 5.95(H) 4.30 - 5.70 10 6/uL 09/27/2018 7:29 AM [facility] Hemoglobin 17.2 13.5 - 17.5 g/dL 09/27/2018 7:29 AM [facility] Hematocrit 51.1(H) 39.0 - 50.0 % 09/27/2018 7:29 AM [facility] MCV 85.9 81.0 - 97.0 fL 09/27/2018 7:29 AM [facility] MCH 28.9 28.0 - 34.0 pg 09/27/2018 7:29 AM [facility] MCHC 33.7 32.0 - 36.0 g/dL 09/27/2018 7:29 AM [facility] Platelet Count 241 150 - 400 10 3/uL 09/27/2018 7:29 AM [facility] RDW-SD 41.3 36.0 - 50.0 fL 09/27/2018 7:29 AM [facility] RDW-CV 13.4 11.2 - 14.8 % 09/27/2018 7:29 AM [facility] MPV 9.1(L) 9.3 - 12.8 fL 09/27/2018 7:29 AM [facility] nRBC Absolute 0.00 0 10 3/uL 09/27/2018 7:29 AM [facility] nRBC Auto 0.0 0 /100 WBC 09/27/2018 7:29 AM [facility] Blood BLOOD SPECIMEN / Unknown Lab Venipuncture / Unknown 09/27/2018 7:22 AM PLATFORM MATERIAL HANDLING SUPERVISOR 09/27/2018 7:26 AM PLATFORM MATERIAL HANDLING SUPERVISOR Casey Ewing MD LAB - HEMATOLOGY ORDERABLES [facility] [address] [place] [address] * (ABNORMAL) COMPREHENSIVE METABOLIC PANEL (09/27/2018 7:22 AM PLATFORM MATERIAL HANDLING SUPERVISOR) BUN 22 7 - 26 mg/dL 09/27/2018 7:46 AM [facility] Creatinine 1.2 0.6 - 1.2 mg/dL 09/27/2018 7:46 AM [facility] Sodium 139 136 - 145 mmol/L 09/27/2018 7:46 AM [facility] Potassium 4.1 3.5 - 4.5 mmol/L 09/27/2018 7:46 AM [facility] Chloride 104 98 - 107 mmol/L 09/27/2018 7:46 AM [facility] CO2 26 22 - 29 mmol/L 09/27/2018 7:46 AM [facility] Glucose 88 70 - 115 mg/dL 09/27/2018 7:46 AM [facility] Calcium 9.5 8.4 - 10.2 mg/dL 09/27/2018 7:46 AM [facility] Protein Total 6.2 6.0 - 8.3 g/dL 09/27/2018 7:46 AM [facility] Albumin 3.0(L) 3.4 - 5.0 g/dL 09/27/2018 7:46 AM [facility] Bilirubin Total 1.2 0.2 - 1.2 mg/dL 09/27/2018 7:46 AM [facility] Alkaline Phosphatase 73 40 - 150 Units/L 09/27/2018 7:46 AM [facility] ALT 49 0 - 55 Units/L 09/27/2018 7:46 AM [facility] AST 19 5 - 34 Units/L 09/27/2018 7:46 AM [facility] Anion Gap 13 8 - 18 09/27/2018 7:46 AM [facility] BUN/Creatinine Ratio 18 7 - 23 09/27/2018 7:46 AM [facility] Osmolality Calculated 291 270 - 300 mOsm/kg 09/27/2018 7:46 AM [facility] Albumin/Globulin Ratio 0.9(L) 1.1 - 2.3 09/27/2018 7:46 AM [facility] eGFR >60 >60 mL/min/1.7 3 m2 09/27/2018 7:46 AM [facility] Blood BLOOD SPECIMEN / Unknown Lab Venipuncture / Unknown 09/27/2018 7:22 AM PLATFORM MATERIAL HANDLING SUPERVISOR 09/27/2018 7:26 AM PLATFORM MATERIAL HANDLING SUPERVISOR Casey Ewing MD LAB - CHEMISTRY ORDERABLES Performing Organization Address City/State/[facility] Co de Phone Number [address] [phone] * XR CHEST 1VW (09/24/2018 7:00 AM PLATFORM MATERIAL HANDLING SUPERVISOR) Anatomical Region Laterality Modality Chest Radiographic Nadja ging 09/24/2018 11:3 9 AM PLATFORM MATERIAL HANDLING SUPERVISOR Impressions 09/24/2018 11:56 AM PLATFORM MATERIAL HANDLING SUPERVISOR IMPRESSION: 1.No acute pulmonary process is seen. Report dictated by Maged Tena M.D. This report was approved by Maged Tena on 09/24/2018 11:41 AM . I, Dr. LALA RICH M.D. have personally reviewed and interpreted this examination/study. This report was electronically signed by LALA RICH M.D. on 09/24/2018 11:56 AM . Narrative 09/24/2018 11:56 AM PLATFORM MATERIAL HANDLING SUPERVISOR EXAMINATION: XR CHEST 1VW HISTORY: r/o atelectasis [...] CBC W AUTO DIFFERENTIAL (09/23/2018 3:12 AM [facility]) Only the most recent of6 resultswithin the time period is included. WBC 16.2(H) 3.5 - 10.5 10 3/uL 09/23/2018 3:29 AM [facility] RBC 5.81(H) 4.30 - 5.70 10 6/uL 09/23/2018 3:29 AM [facility] Hemoglobin 16.6 13.5 - 17.5 g/dL 09/23/2018 3:29 AM [facility] Hematocrit 49.3 39.0 - 50.0 % 09/23/2018 3:29 AM [facility] MCV 84.9 81.0 - 97.0 fL 09/23/2018 3:29 AM [facility] MCH 28.6 28.0 - 34.0 pg 09/23/2018 3:29 AM [facility] MCHC 33.7 32.0 - 36.0 g/dL 09/23/2018 3:29 AM [facility] Platelet Count 209 150 - 400 10 3/uL 09/23/2018 3:29 AM [facility] RDW-SD 40.6 36.0 - 50.0 fL 09/23/2018 3:29 AM [facility] RDW-CV 13.2 11.2 - 14.8 % 09/23/2018 3:29 AM [facility] MPV 9.2(L) 9.3 - 12.8 fL 09/23/2018 3:29 AM [facility] nRBC Absolute 0.00 0 10 3/uL 09/23/2018 3:29 AM [facility] nRBC Auto 0.0 0 /100 WBC 09/23/2018 3:29 AM [facility] Neutrophils % 83.9(H) 35.0 - 70.0 % 09/23/2018 3:29 AM [facility] Lymphocytes % 7.3(L) 19.7 - 55.1 % 09/23/2018 3:29 AM [facility] Monocytes % 6.6 3.0 - 15.0 % 09/23/2018 3:29 AM [facility] Eosinophils % 0.1 0.0 - 6.0 % 09/23/2018 3:29 AM [facility] Basophil % 0.2 0.0 - 1.5 % 09/23/2018 3:29 AM [facility] Neutrophils Absolute 13.6(H) 1.6 - 7.0 10 3/uL 09/23/2018 3:29 AM [facility] Lymphocyte Absolute 1.2 0.8 - 2.9 10 3/uL 09/23/2018 3:29 AM [facility] Monocytes Absolute 1.07(H) 0.14 - 0.66 10 3/uL 09/23/2018 3:29 AM [facility] Eosinophils Absolute 0.01 0.00 - 0.45 10 3/uL 09/23/2018 3:29 AM [facility] Basophils Absolute 0.04 0.00 - 0.06 10 3/uL 09/23/2018 3:29 AM [facility] Immature Granulocytes % 1.9(H) 0.0 - 1.0 % 09/23/2018 3:29 AM [facility] Blood BLOOD SPECIMEN / Unknown Venipuncture / Unknown 09/23/2018 3:12 AM PLATFORM MATERIAL HANDLING SUPERVISOR 09/23/2018 3:25 AM [facility] Vitaly Wang MD LAB - HEMATOLOGY ORD ERABLES [facility] [address] [place] [address] * (ABNORMAL) BASIC METABOLIC PANEL (CALCIUM TOTAL) (09/23/2018 3:12 AM PLATFORM MATERIAL HANDLING SUPERVISOR) Only the most recent of6 resultswithin the time period is included. BUN 24 7 - 26 mg/dL 09/23/2018 4:01 AM [facility] Creatinine 0.8 0.6 - 1.2 mg/dL 09/23/2018 4:01 AM [facility] Sodium 140 136 - 145 mmol/L 09/23/2018 4:01 AM [facility] Potassium 3.9 3.5 - 4.5 mmol/L 09/23/2018 4:01 AM [facility] Chloride 108(H) 98 - 107 mmol/L 09/23/2018 4:01 AM [facility] CO2 20(L) 22 - 29 mmol/L 09/23/2018 4:01 AM [facility] Glucose 106 70 - 115 mg/dL 09/23/2018 4:01 AM [facility] Calcium 8.6 8.4 - 10.2 mg/dL 09/23/2018 4:01 AM [facility] Anion Gap 16 8 - 18 09/23/2018 4:01 AM [facility] BUN/Creatinine Ratio 30(H) 7 - 23 09/23/2018 4:01 AM [facility] Osmolality Calculated 294 270 - 300 mOsm/kg 09/23/2018 4:01 AM [facility] eGFR >60 >60 mL/min/1.7 3 m2 09/23/2018 4:01 AM [facility] Blood BLOOD SPECIMEN / Unknown Venipuncture / Unknown 09/23/2018 3:12 AM PLATFORM MATERIAL HANDLING SUPERVISOR 09/23/2018 3:25 AM [facility] Vitaly Wang MD LAB - CHEMISTRY [facility] Organization Address City/State/ZIP Co de Phone Number [address] [phone] * PHOSPHORUS BLOOD (09/23/2018 3:12 AM [facility]) Only the most recent of3 resultswithin the time period is included. Pathologist [facility] Phosphorus 3.3 2.3 - 4.7 mg/dL 09/23/2018 4:01 AM PLATFORM MATERIAL HANDLING SUPERVISOR [facility] Blood BLOOD SPECIMEN / Unknown Venipuncture / Unknown 09/23/2018 3:12 AM PLATFORM MATERIAL HANDLING SUPERVISOR 09/23/2018 3:25 AM PLATFORM MATERIAL HANDLING SUPERVISOR Vitaly Wang MD LAB - CHEMISTRY [facility] Performing Organization Address [facility]/ZIP Co de Phone Number [address] [phone] * MAGNESIUM BLOOD (09/23/2018 3:12 AM PLATFORM MATERIAL HANDLING SUPERVISOR) Only the most recent of3 resultswithin the time period is included. Magnesium 2.5 1.6 - 2.6 mg/dL 09/23/2018 4:01 AM PLATFORM MATERIAL HANDLING SUPERVISOR [facility] Blood BLOOD SPECIMEN / Unknown Venipuncture / Unknown 09/23/2018 3:12 AM PLATFORM MATERIAL HANDLING SUPERVISOR 09/23/2018 3:25 AM PLATFORM MATERIAL HANDLING SUPERVISOR Vitaly Wang MD LAB - CHEMISTRY [facility] Performing Organization Address [facility] Co de Phone Number [address] [phone] * CT NECK SOFT TISSUE W CONT (09/21/2018 9:02 AM PLATFORM MATERIAL HANDLING SUPERVISOR) Anatomical Region Laterality Modality Head Computed Tomogra phy 09/21/2018 10:0 4 AM PLATFORM MATERIAL HANDLING SUPERVISOR Impressions 09/21/2018 2:54 PM PLATFORM MATERIAL HANDLING SUPERVISOR IMPRESSION: Postoperative changes of recent anterior cervical [...] 2:54 PM . Narrative 09/21/2018 2:54 PM PLATFORM MATERIAL HANDLING SUPERVISOR EXAMINATION: Computed tomography (CT) of the neck [...] Strep A Internal Control Present Lot # [id number] Expiration Date [id number] Throat ENTIRE THROAT (SURFACE REGION OF NECK) / Unknown 09/28/2017 Martínez Ireland FOOD ADVISER-INSECTICIDE EXPERT LAB - POINT OF CARE ORDERABLES * EVENT MONITOR (02/21/2013 8:35 AM CDT) Narrative [facility] - 02/21/2013 8:35 AM CDT Hector [...] you. Arpan Bean CARDIAC SERVICES ORD ERABLES [facility] * CT CHEST ABDOMEN PELVIS W [...] included. Troponin I < 0.010 <0.032 ng/mL [facility] Comment: NOTE Any condition resulting in myocardial [...] Talamantes MD LAB - CHEMISTRY [facility] Organization Address City/State/ZIP Co de Phone Number [address] [phone] * CK + CKMB PANEL (01/05/2013 8:00 AM CDT) Only the most recent of2 resultswithin the time period is included. Pathologist [facility] CK Total 53 30 - 200 Units/L [facility] CK-MB 1.6 0.0 - 6.6 ng/mL [facility] Comment: CKMB Reference Range 6.6 ng/mL or [...] Talamantes MD LAB - CHEMISTRY [facility] C[facility] [address] [phone] * HEMOGLOBIN A1C (01/05/2013 1:15 AM CDT) Hemoglobin A1c 5.3 4.4 - 6.3 % [facility] Estimated Average Glucose 105 mg/dL [facility] Blood specimen (specimen) 01/05/2013 1:15 AM CDT 01/05/2013 2:31 AM CDT Shailesh Talamantes MD LAB - CHEMISTRY [facility] Performing Organization Address [facility] Co de Phone Number [address] [phone] * (ABNORMAL) LIPID PROFILE (01/05/2013 1:15 AM CDT) Cholesterol Total 178 <200 mg/dL [facility] HDL 29(L) > OR = 40 mg/dL [facility] Comment: ATP III classification of HDL cholesterol: <40 mg/dL Low; considered a major risk factor >60 mg/dL High; considered a negative risk factor Triglycerides 213(H) <150 mg/dL [facility] Comment: ATP III classification of Triglycerides: < 150 mg/dL Normal triglycerides 150-199 mg/dL Borderline-high triglycerides 200-400 mg/dL High triglycerides > 500 mg/dL Very high triglycerides LDL Calculated 106(H) 0 - 100 mg/dL [facility] Comment: ATP III classification of LDL cholesterol: <100 mg/dL Optimal 100-129 Near optimal/above optimal 130-159 Borderline high 160-189 High >190 Very high Venous blood specimen (specimen) 01/05/2013 1:15 AM CDT 01/05/2013 2:31 AM CDT Shailesh Talamantes MD LAB - CHEMISTRY [facility] [address] [phone] * ALCOHOL ETHYL BLOOD (01/04/2013 9:20 PM CDT) Ethanol NONE DETECTED NONE DETECTED mg/dL [facility] Comment: ETHANOL LEVELS LESS THAN 10 MG/DL ARE RESULTED NONE DETECTED Venous blood specimen (specimen) 01/04/2013 9:20 PM CDT 01/04/2013 9:33 PM CDT Shailesh Talamantes MD LAB - CHEMISTRY [place] [address], [facility] [phone] * CT ANGIO BRAIN AND NECK (01/04/2013 [...] 8:25 PM CDT) Color UA YELLOW STRW,YELLOW [facility] Clarity UA CLEAR CLEAR [facility] Specific [place] Urine 1.011 1.001 - 1.030 [facility] pH UA 6.5 5.0 - 8.0 [facility] Protein UA NEGATIVE <20 mg/dL [facility] Glucose UA NEGATIVE NEGATIVE mg/dL [facility] Ketones NEGATIVE NEGATIVE mg/dL [facility] Bilirubin UA NEGATIVE NEGATIVE mg/dL [facility] Blood UA NEGATIVE NEGATIVE [facility] Nitrite UA NEGATIVE NEGATIVE [facility] Leukocyte Esterase NEGATIVE NEGATIVE [facility] Urobilinogen UA < 2.0 <2.0 mg/dL [facility] RBC Urine < 1 0 - 8 /HPF [facility] WBC Urine < 1 0 - 2 /HPF [facility] Bacteria Urine RARE <OCCASIONAL /HPF [facility] Mucus Urine OCCASIONAL( A) NONE SEEN /LPF [facility] Urine specimen (specimen) URINE SPECIMEN OBTAINED BY CLEAN CATCH PROCEDURE / Unknown 01/04/2013 8:25 PM CDT 01/04/2013 8:42 PM CDT Shailesh Talamantes MD LAB - URINALYSIS ORD ERABLES Performing Organization Address City/State/[facility] Co de Phone Number [address] [phone] * DRUG ABUSE PANEL 10-20+ETHANOL URINE NO CONFIRM (01/04/2013 8:25 PM CDT) Amphetamines NEGATIVE NEGATIVE [facility] Comment:Positive Cutoff: >=1 000 ng/mL Barbiturate NEGATIVE NEGATIVE [facility] Comment:Positive Cutoff: >=2 00 ng/mL Benzodiazepine Screen Urine NEGATIVE NEGATIVE [facility] Comment:Positive Cutoff: >=2 00 ng/mL Opiates NEGATIVE NEGATIVE [facility] Comment:Positive Cutoff: >=3 00 ng/mL Cocaine Metabolite Urine NEGATIVE NEGATIVE [facility] Comment:Positive Cutoff: >=3 00 ng/mL Phencyclidine Screen Urine NEGATIVE NEGATIVE [facility] Comment:Positive Cutoff: >=2 5 ng/mL Cannabinoids Screen Urine NEGATIVE NEGATIVE [facility] Comment:Positive Cutoff: >=5 0 ng/mL Methadone NEGATIVE NEGATIVE [facility] Comment:Positive Cutoff: >=3 00 ng/mL Note SEE NOTE [facility] Comment: Positive results should be confirmed by another generally accepted non-immunological method such as gas chromatography or mass spectrometry. Toxicology testing by the [facility] is an aid to medical diagnosis and treatment of patients. No documented chain of custody was maintained. Results are intended to be used for clinical purposes only. Note SEE NOTE [facility] Comment: The UTOX Panel does not screen for Propoxyphene, Meprobamate, Carisoprodol, Trazodone, rxlr-sog-jwieina medications and/or volatiles (Acetone, Isopropanol, Methanol, Ethylene Glycol). Ethanol, Salicylate, Acetaminophen, Tricyclic Antidepressants and several therapeutic drugs may be individually assayed in a serum specimen. Urine specimen (specimen) URINE SPECIMEN OBTAINED BY CLEAN CATCH PROCEDURE / Unknown 01/04/2013 8:25 PM CDT 01/04/2013 8:44 PM CDT Shailesh Talamantes MD LAB - URINE CHEMISTR Y ORDERABLES [address] [phone] * ECHO W DOPPLER AND COLOR FLOW (01/04/2013 12:00 AM CDT) Anatomical Region Laterality Modality Other 01/04/2013 Shailesh Talamantes MD ECHOCARDIOGRAPHY RAD IANT Care Teams Belt Picker Relationship Specialty Start Date End Date Herlinda Maddox MD [address] [place], [place] [id number] PCP - General Internal Medicine 09/28/17
--- OUTSIDE RECORDS SUMMARY | 2024-10-02 21:31 | XMS_ITS | Clinical Summary ---
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 ([facility]) 08/19/2018 Facet arthropathy, cervical 08/19/2018 [...] Comments Blood Pressure 166/95 07/06/2022 1:12 PM BEEF PLUCK TRIMMER ran out of bp medication Pulse 54 07/06/2022 1:12 PM BEEF PLUCK TRIMMER Temperature 36.8 C (98.3 F) 07/06/2022 1:12 PM BEEF PLUCK TRIMMER Respiratory Rate 18 05/02/2022 1:03 PM CDT Oxygen Saturation 98% 07/06/2022 1:1 2 PM BEEF PLUCK TRIMMER Inhaled Oxygen Concentration - - Weight 94.3 kg (208 lb) 07/06/2022 1:12 PM BEEF PLUCK TRIMMER Height 180.3 cm (5' 11 ) 07/06/2022 1:1 2 PM BEEF PLUCK TRIMMER Body Mass Index 29.01 07/06/2022 1:12 PM BEEF PLUCK TRIMMER Plan of Treatment Health Maintenance Due Date [...] this topic Medical Devices Implanted Type Area Labels Molder Device Identifier Shelf Expiration Date Model / Serial / Lot Infuse Bone Graft Implanted:Qty : 1 on 09/18/2018 by Raf Gaitan MD at [facility] N/A: Spine Cervical [employer] [id number] 11/26/2020 [id number] / / [id number] Infuse Bone Graft Implanted:Qty : 1 on 09/18/2018 by Raf Gaitan MD at [facility] N/A: Spine Cervical [employer] [id number] 05/29/2019 [id number] / / [id number] Description:C6-7 Iona Daksha-Metalene Implanted:Qty : 1 on 09/18/2018 by Raf Gaitan MD at [facility] N/A: Spine Cervical [employer] [id number] 03/06/2022 39-2806-[id number] / / [id number] Description:C6-7 Iona Daksha-Metalene Implanted:Qty : 1 on 09/18/2018 by Raf Gaitan MD at [facility] N/A: Spine Cervical SEASPINE [id number] 03/06/2022 [id number] / / [id number] Description:C5-6 Iona Daksha-Metalene Implanted:Qty : 1 on 09/18/2018 by Raf Gaitan MD at [facility] N/A: Spine Cervical SEASPINE [id number] 03/06/2022 [id number] / / [id number] Description:C4-5 Infuse Bone Graft Implanted:Qty : 1 on 09/18/2018 by Raf Gaitan MD at [facility] N/A: Spine Cervical [employer] [id number] 01/26/2019 [id number] / / [id number] [place] Aviator 3 Level Plate Implanted:Qty : 1 on 09/18/2018 by Raf Gaitan MD at [facility] N/A: Spine Cervical [employer] - DIV LUIS JENIFFER [id number] / / Screw Variable Self Drilling Luis 16mm - [id number] Implanted:Qty : 8 on 09/18/2018 by Raf Gaitan MD at [facility] N/A: Spine Cervical LUIS SPINE - DIV LUIS JENIFFER [id number] / / Explanted Type Area Labels Molder Device Identifier Shelf Expiration Date Model / Serial / Lot Distration Pin 12mm - [id number] Explanted:Qty: 4 on 09/18/2018 at [facility] N/A: Spine Cervical [employer] DP-12-[id number] / / Insurance MEDICARE [facility] Advance Directives Documents on File Type Date Recorded Patient Industrial Hygiene Technician Expl anation Advance Directives and Living Will 09/19/2018 9:51 AM 09/18/18 [facility] * Full Code (Latest Code Status on File) Date Activated Date Inactivated Comments 09/18/2018 3:11 PM 09/20/2018 7:06 PM Care Teams Bulb Grower Relationship Specialty Start Date End Date Pedrito Maddox MD [id number] [place] [id number] PCP - General INTERNAL MEDICINE 08/29/18
[2024-10-02 22:41] VITALS: BP 162/74; PULSE 85; RESP 17; O2SAT 97
== END 2024-10-02 22:42 | disposition home or self-care (01) ==
PROVIDERS: Emergency Provider Physician Assistant; PCP Emergency Medicine
DX: S01.81XA Laceration without foreign body of other part of head, initial encounter (principal); Z23 Encounter for immunization; I10 Essential (primary) hypertension; E78.5 Hyperlipidemia, unspecified; G47.30 Sleep apnea, unspecified; M48.10 Ankylosing hyperostosis [Forestier], site unspecified; Z86.73 Personal history of transient ischemic attack (TIA), and cerebral infarction without residual deficits; W01.0XXA Fall on same level from slipping, tripping and stumbling without subsequent striking against object, initial encounter
CPT/HCPCS: 12004; 70450; 90471; 90715; 99283; 99284

== ENCOUNTER 2025-07-06 14:17 | Outpatient (CLI) | payer MEDICARE, OTHER, SELFPAY ==
--- NOTE | 2025-07-06 | ECG_ITS ---
Test Date: 2025-07-06 15:28:10 Measurements Intervals [place] Rate: 58 P: 66 ME: 201 QRS: -3 QRSD: 106 T: 92 QT: 400 QTc: 395 Interpretive Statements SINUS BRADYCARDIA DELAYED PRECORDIAL R/S TRANSITION LEFT VENTRICULAR HYPERTROPHY WITH ST-T CHANGE CONSIDER INFERIOR INFARCT, AGE INDETERMINATE BASELINE ARTIFACT- I, II, III, AVR, AVL, AVF, V1-V2, V4-V6 ABNORMAL ECG No previous ECG available for comparison Electronically Signed On 07-06-2025 16:10:21 INSURANCE SALES REPRESENTATIVE by Teodoro Trevino D.O.
--- NOTE | ~2025-07-06 | CT_ITS ---
EXAM/PROCEDURE: CT foot LT wo con HISTORY: left ankle Fx COMPARISON: None available. TECHNIQUE: CT left foot FINDINGS: Trimalleolar fracture present with medial malleolus fracture displaced approximately 5 mm distally, mildly displaced fracture of the distal tibia at the tibiofibular junction, and slight displacement of the posterior malleolus. Mild comminution of the distal fibula with small bony fragments having corticated appearance possibly chronic. No other fracture lucency seen. About 5 mm of lateral tibiotalar subluxation also present. Soft tissue swelling present and small to moderate-sized joint effusion. No large hematoma seen. No pathologic lesion seen. IMPRESSION: Mildly displaced fractures involving the medial malleolus, posterior malleolus, and lateral tibia at the tibiofibular articulation; these fractures all appear acute. Mild comminution of the distal fibular tip may be chronic. Slight tibiotalar subluxation present. Reviewed, dictated and finalized at location A. ISTICAL CLERK ADVERTISING IMPRESSION: Mildly displaced fractures involving the medial malleolus, posterio r malleolus, and lateral tibia at the tibiofibular articulation; these fracture s all appear acute. Mild comminution of the distal fibular tip may be chronic. Slight tibiotalar subluxation present.
[2025-07-06 15:59] LABS: Hematocrit 42.0 % (42.0-52.0); Hemoglobin 14.3 g/dL (14.0-18.0); Mean Corpuscular HGB Conc 34.0 g/dl (32-36); Mean Corpuscular Hemoglobin 28.8 pg (26-34); Mean Corpuscular Volume 84.7 fl (80-100); Platelet Count Result 221 k/mm3 (150-375); Red Blood Count 4.96 M/mm3 (4.6-6.20); White Blood Count 7.6 K/mm3 (4.5-10.0)
[2025-07-06 16:22] LABS: Alanine Aminotransferase 26 U/L (6-50); Albumin Level 4.2 g/dL (3.5-5.1); Alkaline Phosphatase 87 U/L (38-126); Anion Gap 4 mmol/L (4-12); Aspartate Amino Transferase 28 U/L (17-59); Bilirubin,Total 0.9 mg/dL (0.2-1.3); Blood Urea Nitrogen 19 mg/dL (9-20); CRP 0.9 mg/dL (<1.0); Calcium 9.5 mg/dL (8.4-10.2); Carbon Dioxide 24 mmol/L (22-30); Chloride 110 mmol/L (98-107); Estimated Glomerular Filt Rate > 60; Glucose 122 mg/dL (65-110); Potassium 3.8 mmol/L (3.4-5.0); Sodium 138 mmol/L (137-145); Total Protein 7.0 g/dL (6.3-8.2)
== END 2025-07-06 14:18 | disposition home or self-care (01) ==
PROVIDERS: PCP Emergency Medicine; Visit Provider Orthopaedic Surgery
DX: S82.845A Nondisplaced bimalleolar fracture of left lower leg, initial encounter for closed fracture (principal); X58.XXXA Exposure to other specified factors, initial encounter
CPT/HCPCS: 36415; 73700; 80053; 85027; 86140; 93005

== ENCOUNTER 2025-07-10 03:00 | Day surgery (SDC) | payer MEDICARE, OTHER, SELFPAY ==
[2025-07-07 11:14] VITALS: BMI 28.9
--- NOTE | 2025-07-07 11:49 | PC.NURSE ---
[facility] has started construction of its new state of the art ER which will open Spring 2026. With this, we anticipate parking may be a challenge for some our surgical patients and families. Parking spaces are limited but are available for all Surgical, obstetrics, and ER patients sharing this lot. If you arrive and find you are having a hard time finding a parking space, please note that we understand the challenges, please drive around the hospital and park near Hospital Entrance 1. When you enter this entrance, you can ask a volunteer to direct or take you back to the surgical waiting area to check in. We appreciate everyone?s understanding of these expected challenges while we build for your future. Report to the Outpatient Waiting Room, entrance under the green pavilion located off [address], at time ____11:00AM___ on date ___07/10/25____. Planned Procedure Time: ___1:00PM .? Time changes happen often and if your time is changed the preop area will call you the afternoon before. - You and your visitor will be asked to self-screen and do not enter if you have any COVID symptoms. Please call surgeon if you need to reschedule. - A mask is optional within the hospital at this time. Patients may have clear liquids (water, carbonated beverages, clear teas, apple juice) until 3 hours prior to surgery (10:00AM) with a maximum of 20 ounces. - No food from midnight until time of surgery and no smoking, or chewing tobacco (or any form of nicotine). No chewing gum, candy or mints. Take only the following medications with a SIP of water on the morning of surgery: ___NONE DO NOT STOP ANY OF YOUR OTHER PRESCRIPTION MEDICATIONS PRIOR TO SURGERY EXCEPT THE FOLLOWING Hold all vitamins and supplements for 3 days per anesthesiologist. LAST DOSE 07/06/25 Medications to discontinue per physician ___HOLD PLAVIX PER DR ARCINIEGA. TOOK LAST DOSE 07/04/25 (5 DAY PRE-OP HOLD) (PHONED OFFICE TO VERIFY HOLD ORDER.) Please no make-up, nail upper sorbian, hairspray, perfume, deodorant, or body powder the day of surgery.? No jewelry (including any body piercings) or valuables the day of surgery, leave them at home.? Please take a shower or bath the night before, or the morning of, surgery with an antibacterial soap.? Wear comfortable, loose fitting clothing.? - Jewelry must be removed prior to entering the operating room.? Rings and piercings that are not removed may be cut off. - The hospital will not accept responsibility for valuables.? - Please leave all valuables, including medications, at home the day of surgery. If you are going home after surgery, a licensed trencher driver must drive you home.? - NO public transportation without another adult if you receive anesthesia. - We recommend that an adult stay with you for 24 hours following discharge. - We also recommend that you do not drive, make important decision, drink alcoholic beverages, or take any drugs that were not prescribed by your health care provider for at least 24 hours after your discharge time. Follow any additional instructions given to you from your surgeon. Telephone instructions given to ____PATIENT and asked if any additional questions and then verbalized understanding. Patient advised to call surgeon office or pre surgery nurse liaison [phone] if any additional questions.
[2025-07-10] VITALS (9 sets, daily range): BP systolic 103–160; BP diastolic 43–84; PULSE 58–75; RESP 12–16; TEMP 36.2–36.3; O2SAT 92–98; BMI 28.7
--- NOTE | ~2025-07-10 | XR_ITS ---
EXAMINATION: XR surgery orthopedic DATE: 07/10/2025 15:00 INDICATION: ORIF left ankle fracture TECHNIQUE: 4 fluoroscopic images of the left ankle were obtained procedure performed by Dr. Edmond. Radiologist was not present for the imaging or procedure. The amount of fluoroscopy time used during this procedure was 1.5 minutes. The dose area product was 1.052 Gycm^2. COMPARISON: CT dated 07/06/2025 FINDINGS: Interval reduction of the previously noted fractures of the distal left tibia as previously detailed. The fracture is now fixed with medial and lateral plates and screws which includes lateral sided screws spanning the distal tibiofibular syndesmosis. There is also placement of a cannulated screw over a percutaneous wire obtained from proximal to distally across the tip of the medial malleolus. Alignment appears near-anatomic with a congruent ankle mortise. No new fractures identified. IMPRESSION: 1. Near-anatomic alignment post open reduction internal fixation of comminuted fracture of the distal left tibia. Reviewed, dictated and finalized at location A. ING AND MOVING ESTIMATOR
[2025-07-10] MEDS: KETOROLAC 15 MG/ML VIAL (*BKC) IV PUSH (10:45)
[2025-07-10] MEDS: LACTATED RINGERS 1,000 ML 30 ML IV CONT ×2 (10:45→15:31)
[2025-07-10] MEDS: VANCOMYCIN 1,500 MG/NS 500 ML 1,500 MG/500 ML BAG 250 MG IVPB (10:45)
[2025-07-10] MEDS: ACETAMINOPHEN 500 MG TABLET 1000 MG PO (10:45)
--- NOTE | 2025-07-10 11:41 | WPDANESEPPF ---
Anes - Initial Pre Proc Eval Procedure: Operation Date: 07/10/25 12:00 Proposed Procedures p Open Reduction Internal Fixation Left Ankle Fracture - Lucian Edmond MD Date/Time: 07/10/25 11:41 Surgeon: Lucian Edmond MD Pre Op Diagnosis: Lt Ankle Fracture Patient Data Age: 70 Gender: M Height: 1.8 m Weight: 93.35 kg Last Vital Signs Temp 36.3 C L 07/10/25 10:45 Pulse 58 L 07/10/25 10:45 BP 154/75 H 07/10/25 10:45 Pulse Ox 98 07/10/25 10:45 O2 Del Method Room Air 07/10/25 10:45 Allergies Allergy/AdvReac Type Severity Reaction Status Date / Time Penicillins Allergy Unknown RASH Verified 07/07/25 11:05 Home Medications ?Medication ?Instructions ?Recorded ?Confirmed ?Type pravastatin 40 mg tablet 40 mg PO DAILY 03/14/22 07/07/25 History amlodipine 10 mg tablet See Rx Instructions .Route 03/04/25 07/07/25 Rx .COMPLEX #90 tabs losartan 50 mg tablet See Rx Instructions .Route 03/04/25 07/07/25 Rx .COMPLEX #90 tabs clopidogrel 75 mg tablet See Rx Instructions .Route 03/31/25 07/07/25 Rx .COMPLEX #90 tabs tamsulosin 0.4 mg capsule See Rx Instructions .Route 04/17/25 07/07/25 Rx .COMPLEX #90 caps cholecalciferol (vitamin D3) 25 1,000 unit PO HS 07/07/25 07/07/25 History mcg (1,000 unit) capsule ibuprofen 200 mg tablet (Advil) 600 mg PO Q6H PRN pain 07/07/25 07/10/25 History magnesium carbonate 250 mg capsule 250 mg PO HS 07/07/25 07/07/25 History Patient hx anesthesia problems: none Family hx anesthesia problems: none Results Review: All pre-operative results and documents have been reviewed as part of the pre-operative evaluation. [facility]LY [facility] Past Medical History Medical History (Updated 03/31/25 @ 15:14 by Lexie Roy MA) Prostate cancer Back pain at L4-L5 level Body mass index [BMI] 26.0-26.9, adult (05/18/17) Body mass index [BMI] 27.0-27.9, adult (07/26/17) Body mass index [BMI] 28.0-28.9, adult (08/03/16) Body mass index [BMI] 45.0-49.9, adult (03/07/18) Carpal tunnel syndrome, bilateral Cerebrovascular accident (CVA) Cervical radiculopathy Chronic right-sided thoracic back pain Cough DISH (diffuse idiopathic skeletal hyperostosis) Encounter for screening colonoscopy Fatigue HTN (hypertension), benign Injury of digital nerve of right thumb, initial encounter 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 Other chronic pain Paresthesia of both hands Preoperative clearance Sleep apnea, unspecified Strain of left hamstring Strain of lumbar region Viral syndrome Hypertension Screening PSA (prostate specific antigen) HLD (hyperlipidemia) Surgical History Surgical History Status post cervical discectomy Family History Family History Mother Cerebrovascular accident, Onset Age: 91 Patient's mother is in good health Sibling Cerebrovascular accident, Onset Age: 58 Social History Social History (Updated 03/31/25 @ 15:20 by Lexie Roy MA) Smoking status: Never smoker Alcohol intake: never Substance use: never Lack of Transportation: No Lack of Food: Never True Current Housing: I Have Housing Concerned About Future Housing: No Difficulty Paying Gas/Electric Bills: No Difficulty Paying for Meds: No Currently Unemployed: No Education: High School Diploma/GED Difficulty w/ Childcare or Family Care: No Living arrangements: with family Additional living arrangements comments: Spiritual care concerns: No Anes - Eval Final PreProcedure Day of Procedure 07/10/25 11:41 Patient weight: overweight Heart: regular rate and rhythm Lungs: clear to auscultation Airway: Mallampati scale class III Neurological: alert and oriented Last oral intake: >/= 8 hours ASA classification: III Emergent: no Anesthetic plan: proceed Anesthesia type and monitoring: general LMA and standard monitoring Results Review: All pre-operative results and documents have been reviewed as part of the pre-operative evaluation. Informed Consent: The patient's anesthetic plan and its attendant risks and benefits were discussed with the patient/family/POA. Questions were solicited and answers provided to the satisfaction of the patient/family/POA.
--- NOTE | 2025-07-10 12:12 | PM.IMHP2 ---
H&P: HPI History of Present Illness Date/Time: 07/10/25 12:12 Chief Complaint: Left Ankle Fx Narrative: 70 yr male s/p fall at home with a prox fib fx and trimalleolar ankle fx, seen at Urgent care 1 week later (he thought it as a sprain), continued pain. He was sent to my office for consultation. Seen in Sunday, seen in my clinic on Sunday this week. No other injuries. [facility] Past Medical History Medical History (Updated 07/10/25 @ 12:15 by Lucian Edmodn MD) Prostate cancer Back pain at L4-L5 level Body mass index [BMI] 26.0-26.9, adult (05/18/17) Body mass index [BMI] 27.0-27.9, adult (07/26/17) Body mass index [BMI] 28.0-28.9, adult (08/03/16) Body mass index [BMI] 45.0-49.9, adult (03/07/18) Carpal tunnel syndrome, bilateral Cerebrovascular accident (CVA) Cervical radiculopathy Chronic right-sided thoracic back pain Cough DISH (diffuse idiopathic skeletal hyperostosis) Encounter for screening colonoscopy Fatigue HTN (hypertension), benign Injury of digital nerve of right thumb, initial encounter 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 Other chronic pain Paresthesia of both hands Preoperative clearance Sleep apnea, unspecified Strain of left hamstring Strain of lumbar region Viral syndrome Hypertension Screening PSA (prostate specific antigen) HLD (hyperlipidemia) Surgical History Surgical History Status post cervical discectomy Family History Family History Mother Cerebrovascular accident, Onset Age: 91 Patient's mother is in good health Sibling Cerebrovascular accident, Onset Age: 58 Social History Social History (Updated 03/31/25 @ 15:20 by Lexie Roy MA) Smoking status: Never smoker Alcohol intake: never Substance use: never Lack of Transportation: No Lack of Food: Never True Current Housing: I Have Housing Concerned About Future Housing: No Difficulty Paying Gas/Electric Bills: No Difficulty Paying for Meds: No Currently Unemployed: No Education: High School Diploma/GED Difficulty w/ Childcare or Family Care: No Living arrangements: with family Additional living arrangements comments: Spiritual care concerns: No Meds Home Medications and Allergies Home Medications ?Medication ?Instructions ?Recorded ?Confirmed ?Type pravastatin 40 mg tablet 40 mg PO DAILY 03/14/22 07/07/25 History amlodipine 10 mg tablet See Rx Instructions .Route 03/04/25 07/07/25 Rx .COMPLEX #90 tabs losartan 50 mg tablet See Rx Instructions .Route 03/04/25 07/07/25 Rx .COMPLEX #90 tabs clopidogrel 75 mg tablet See Rx Instructions .Route 03/31/25 07/07/25 Rx .COMPLEX #90 tabs tamsulosin 0.4 mg capsule See Rx Instructions .Route 04/17/25 07/07/25 Rx .COMPLEX #90 caps cholecalciferol (vitamin D3) 25 1,000 unit PO HS 07/07/25 07/07/25 History mcg (1,000 unit) capsule ibuprofen 200 mg tablet (Advil) 600 mg PO Q6H PRN pain 07/07/25 07/10/25 History magnesium carbonate 250 mg capsule 250 mg PO HS 07/07/25 07/07/25 History Allergies Allergy/AdvReac Type Severity Reaction Status Date / Time Penicillins Allergy Unknown RASH Verified 07/07/25 11:05 Vital Signs Vital Signs - 24 hr 07/10/25 10:45 Temperature 36.3 C L Pulse Rate 58 L Blood Pressure 154/75 H Pulse Oximetry 98 Oxygen Delivery Room Air Exam Narrative: Left ankle and foot with moderate swelling and warmth, no skin laceration or open wounds, moderate tenderness to medial and lateral ankle as well as proximal fibula. Const: General: cooperative, healthy appearing, comfortable and no acute distress Assessment and Plan Assessment and plan (1) Trimalleolar fracture of left ankle: Code(s): S82.852A - Displaced trimalleolar fracture of left lower leg, initial encounter for closed fracture Status: Acute Assessment and Plan: 70 yr old male with the Left ankle unstable fracture, [place]. Plan ORIF medial and lateral malleolus, with syndesmotic fixation. Risks benefits alternatives and complications discussed with patient and his . Risks include but are not limited to infection, DVT, post traumatic arthritis, and hardware irritation requiring removal, they agree to proceed.
--- NOTE | 2025-07-10 12:19 | WPDHPUPDATE1 ---
History and Physical Update Update Date/Time: 07/10/25 12:19 History and Physical has been reviewed, including an updated exam of the patient. There are NO changes in the patient's condition. Risks, benefits, and alternatives have been discussed and questions answered. Patient agrees to proceed with procedure. 70 yr old male with the Left ankle unstable fracture, [place]abelelfegoarnold. Plan ORIF medial and lateral malleolus, with syndesmotic fixation. Risks benefits alternatives and complications discussed with patient and his . Risks include but are not limited to infection, DVT, post traumatic arthritis, and hardware irritation requiring removal, they agree to proceed.
[2025-07-10] MEDS: ceFAZolin 2 GM in SODIUM CHLORIDE 0.9% IV 50 ML 100 ML IVPB (12:31)
[2025-07-10] MEDS: fentaNYL CITRATE INJ (*CRX) 100 MCG/2 ML VIAL 25 MCG IV PUSH ×2 (15:55→16:38)
--- NOTE | 2025-07-10 16:06 | P.OP_ITS ---
Procedure Note - Detailed Date of Procedure 07/10/25 Pre-op Diagnosis Left Ankle Trimalleolar Fracture with Syndesmotic Injury and proximal fibular fracture ([place]uve) Post-op Diagnosis Same Procedure Performed 1. Left Ankle Trimalleolar Fracture with Syndesmotic Injury and proximal fibular fracture ([place]uve) 2. Intra-Operative Fluoroscopy 3. Left Short Leg Splint application Surgeon Lucian Edmond MD Anesthesia General Indications 70 yr old male with delayed presentation of Left Ankle fracture. Injury occurred 3 weeks ago. He presented to the Urgent care center (not associated with [facility]) more than a week after the injury. He was then instructed to follow up with my office. He though that he sprained his ankle. Not getting any better, his convinced him to seek medical care. Findings Intraoperative widening of the medial joint space with significant difficulty reducing the ankle joint to his establish a normal medial clear space. Description of Procedure After marking the patient's left foot and ankle prior to bringing him back to the operating room, he was then brought back to the operating room placed in supine position underwent general anesthesia left lower extremity was then prepped and draped in standard sterile fashion. Tourniquet was not used the procedure. The time-out was performed to verify correct site of surgery correct patient and correct procedure into verify that antibiotics were administered within 1 hour of incision time. Immediately fluoroscopy was used in order to examine the fracture and it was noted that he had a significant widening the medial joint space that was persistent. I then turned my attention to the lateral aspect of the patient's ankle and a median incision approximately 5 in in length and dissection was carried down and I immediately identified a nondisplaced fracture of the distal fibula I then proceeded to place a periarticular distal fibular plate anatomic and then used fluoroscopy to verify reduction of the ankle joint with a large reduction clamp compressing the fibula to the tibia. I was able to do this manually with some difficulty but has definitely able to reduce the joint manually. I had to keep the joint reduced the distal tib-fib joint specifically with his reduction clamp. Then I proceeded to place 2 syndesmotic screws across the syndesmosis. I then released the clamp and noted that the patient had maintained the reduction and the medial joint space. These 2 syndesmotic screws were placed to the periarticular plate. I then placed additional screws into the lateral fibular plate. I then turned my attention medially at which time identified a very small fragment approximately 1 x 1 cm medial malleolus. I was able to reduce this with a reduction clamp and then with a provisional K-wire fixation. I then placed a medial hook plate on in the high proceeded to keep the fracture reduced and I placed a cannulated screws through the medial malleolus through the plate to hold the fracture in place. Then placed 2 additional screws over the holes proximal in the plate. Then irrigated copiously and did AP and lateral views fluoroscopy to verify reduction and also hardware placement. During the dissection medially and laterally Kiara was very careful to avoid on the medial side the saphenous nerve and down on the lateral side the peroneal nerve. Specifically the superficial peroneal nerve. I then irrigated the size the patient and then I closed using a dermal 2-0 Vicryl suture and then interrupted nylon suture. I then proceeded to apply the posterior splint with 90? flexion at the ankle. The ankle had good range of motion at the end of the procedure prior to placing him in the short leg splint. The patient be strict nonweightbearing on this extremity. The patient has been taking Plavix for many years he will continue taking his Plavix postoperatively for DVT prophylaxis. Implants Arthrex distal fibular plate system and Arthrex medial malleolar hook plate Estimated Blood Loss 25 Tourniquet Time Total Tourniquet Time: 0 Drains No Packing No Pathology None sent Complications No immediate complications Condition Stable Disposition PACU
[2025-07-10] MEDS: oxyCODONE HCL (*CRX) 5 MG TAB IR PO (17:25)
== END 2025-07-10 17:52 | disposition home or self-care (01) ==
PROVIDERS: PCP Emergency Medicine; Visit Provider Orthopaedic Surgery
PROC: (CPT 27822; principal; 2025-07-10 12:00)
DX: S82.852A Displaced trimalleolar fracture of left lower leg, initial encounter for closed fracture (principal); S93.432A Sprain of tibiofibular ligament of left ankle, initial encounter; W19.XXXA Unspecified fall, initial encounter
CPT/HCPCS: 27822; 27829; 99199; J0690; A9270; C1713; C1769; J1100; J1885; J2004; J2405; J2704; J3010; J3373; J7120